=== PATIENT | male | born 1950 | race Caucasian/White ===

== ENCOUNTER → 2016-07-24 | Outpatient (CLI) | payer BC ==
--- NOTE | 2016-07-24 09:38 | MR ---
EXAMINATION TYPE: MR knee LT wo con DATE OF EXAM: 07/24/2016 8:36 AM COMPARISON: Outside radiographs 07/14/2016 HISTORY: 65-year-old male with left Knee Pain TECHNIQUE: Multiplanar, multisequence imaging of the left knee is performed without IV contrast. FINDINGS: The ACL and PCL are intact. There is edematous change both deep and superficial to the intact MCL. In addition, there is some intrinsic high T2 signal within the popliteus tendon and mild edema within the popliteus muscle belly. LCL complex otherwise intact. There is an oblique tear which extends throughout the posterior horn and body of the medial meniscus back to the posterior root where a small 3 mm apparent meniscal cyst is noted. There is mild diffuse thinning of medial compartment articular cartilage and likely some reactive subchondral marrow edema along the peripheral lip of the medial tibial plateau. Lateral meniscus shows an oblique tear extending through the anterior horn, body, and to the junction with the posterior horn. Mild diffuse thinning of lateral compartment articular cartilage with concepcion nal spurring. Patellofemoral compartment shows moderate irregular cartilage loss along both the medial and lateral patellar facets with overall preserved trochlear articular cartilage. There is a tiny 3.7 mm loose body located in front of the anterior root of the lateral meniscus. There is a small knee joint effusion with evidence of a ruptured Whitman's cyst and mild diffuse soft t issue swelling. Some patchy areas of red marrow reconversion are present within the distal femoral metadiaphysis and metaphysis. No suspicious bone marrow replacement. There is normal popliteal artery anatomy with mild diffuse muscular atrophy. IMPRESSION: 1. Grade 1 MCL sprain. 2. Tendinosis versus small interstitial tear of the popliteus tendon. Some edema within the popliteus muscle belly could reflect a muscle strain or could be reactive to altered biomechanics. 3. Oblique tear of the posterior horn and body of the medial meniscus with mild overall medial compar tment osteoarthrosis. 4. Lateral meniscus shows an oblique tear extending from the anterior horn, body, to the junction wit h the posterior horn. Mild overall lateral compartment osteonecrosis. 5. Moderate irregular cartilage loss along the patellar facets of the patellofemoral compartment. Sma ll 4 mm loose body anteriorly. 6. Small knee joint effusion and evidence of a ruptured Whitman's cyst.
== END | disposition home or self-care (01) ==
LOC: RADMRIMAIN 07:43
PROVIDERS: ATTEND Orthopaedic Surgery
DX: S83.412A Sprain of medial collateral ligament of left knee, initial encounter (principal); S83.242A Other tear of medial meniscus, current injury, left knee, initial encounter; S83.282A Other tear of lateral meniscus, current injury, left knee, initial encounter; M71.22 Synovial cyst of popliteal space [Baker], left knee

== ENCOUNTER → 2016-08-24 | Outpatient (CLI) | payer BC ==
[2016-08-24 10:14] LABS: Aty Lym Flag Slight; CH 28.4; CHCM 32.1; HCT 41.7 % (39.0-53.0); HDW 2.54; HGB 13.4 gm/dL (13.0-17.5); MCH 28.5 pg (25.0-35.0); MCHC 32.1 g/dL (31.0-37.0); MCV 88.9 fL (80.0-100.0); Mean Platelet Volume 6.2; RBC 4.69 m/uL (4.30-5.90); RDW 15.4 % (11.5-15.5); WBC 4.9 k/uL (3.8-10.6); WBC (Perox) 5.21
[2016-08-24 10:19] LABS: Potassium 4.5 mmol/L (3.5-5.1)
[2016-08-24 10:55] LABS: Add Differential Manual Differential
[2016-08-24 10:57] LABS: Nucleated Red Blood Cells 0 /100 WBC (0-0); Total Cells Counted 100
[2016-08-24 10:58] LABS: Manual Review Performed; RBC Morphology Normal
== END | disposition home or self-care (01) ==
LOC: LABPAT 09:29
PROVIDERS: ATTEND Orthopaedic Surgery
DX: Z01.818 Encounter for other preprocedural examination (principal); M23.92 Unspecified internal derangement of left knee
CPT/HCPCS: 80051; 85025

== ENCOUNTER 2016-09-03 09:17 | Day surgery (SDC) | payer BC ==
[2016-09-02 08:37] VITALS: BMI 28.3
--- NOTE | 2016-09-02 15:39 | HP ---
DATE OF ADMISSION: Abhishek Sanabria is a 65-year-old patient seen with progressive left knee pain. After having options regarding treatment discussed, he elected to proceed with left knee arthroscopy. Consent was obtained. His past medical history is osteoarthritis. Past surgical history is cataract surgery, back surgery. Daily medications: 1. Aspirin. 2. Ibuprofen. 3. Multivitamin. ALLERGIES: None. SOCIAL HISTORY: Patient denies tobacco use. Physical evaluation of the left knee: Range of motion 0 to 120 degrees, mild intra-articular effusion. Tenderness medial joint line. Positive medial Zac's. Crepitus along the medial compartment with range of motion. Ligaments are stable. Hip rotation without pain. Distal neurovascular exam intact. Radiographs of the left knee revealed mild osteoarthritis. MRI of the left knee revealed medial meniscal tear, lateral meniscal tear as well as osteoarthritic changes. IMPRESSION: Internal derangement of the left knee with medial and lateral meniscal tears. PLAN: Left knee arthroscopy with partial medial and lateral meniscectomy as well as debridement.
[~2016-09-03 09:17] MED LIST: DEXAMETHASONE SOD PHOSPHATE 10 MG/ML 1 ML VIAL IV ONE; LACTATED RINGERS 1,000 ML IV SCH; LIDOCAINE 1% 20 ML VIAL (10MG/ML) FOR IV START INTRADERMA PRN; MIDAZOLAM 2 MG/2 ML VIAL IV PRN; SCOPOLAMINE 1.5MG/72HR PATCH TRANSDERM ONE; ceFAZolin 1,000 MG in DEXTROSE/WATER 1 50ML.BAG IV ONE
[2016-09-03] MEDS: ONDANSETRON 4 MG/2 ML VIAL IVP ONE ×2 (10:27→12:14)
[2016-09-03] MEDS ORDERED: PROPOFOL 10 MG/ML 20 ML VIAL IV ONE (11:09)
[2016-09-03] MEDS ORDERED: MIDAZOLAM 2 MG/2 ML VIAL ONE (11:09)
[2016-09-03] MEDS ORDERED: ePHEDrine 50 MG/ML 1 ML AMP ONE (11:09)
[2016-09-03] MEDS ORDERED: fentaNYL (PF) 50 MCG/ML 2 ML AMP ONE (11:09)
[2016-09-03] MEDS ORDERED: LIDOCAINE 1% INJ 10MG/ML (20 ML MDV) ONE (11:09)
[2016-09-03] MEDS ORDERED: BUPIVACAIN-EPI 0.25%-1:200,000 30 ML VIAL SQ ONE (11:09)
[2016-09-03 12:02] VITALS: TEMP 97.9
--- NOTE | 2016-09-03 12:05 | P.OP ---
Date of Procedure: 09/03/16 Preoperative Diagnosis: Internal derangement left knee Postoperative Diagnosis: 1. Tear medial and lateral meniscus left knee 2. Grade 2/3 chondromalacia medial femoral condyle left knee 3. Grade 1/2 chondromalacia patella left knee 4. Reactive synovitis medial and suprapatellar compartments left knee Procedure(s) Performed: 1. Arthroscopic partial medial and lateral meniscectomy left knee 2. Arthroscopic chondroplasty medial femoral condyle left knee 3. Arthroscopic chondroplasty patella left knee 4. Arthroscopic partial synovectomy medial and suprapatellar compartments left knee Anesthesia: LAKSHMIA, local Surgeon: Barry Mora Estimated Blood Loss (ml): 10 Pathology: none sent Condition: stable Disposition: PACU Indications for Procedure: 65-year-old patient seen with progressive left knee pain. After having treatment options discussed, he elected to proceed with left knee arthroscopy. Operative Findings: Description of procedure Description of Procedure: Patient was taken to the operative suite. Patient underwent a general anesthetic by the department of anesthesia. Patient was given preoperative antibiotics. The left lower extremity was placed in a well-padded arthroscopic leg anthony. The left leg was prepped and draped in the normal sterile orthopedic fashion. A lateral parapatellar and suprapatellar incision was made. Trochars were inserted. Arthroscopy was initiated. Suprapatellar pouch revealed diffuse thick reactive synovitis. The patellofemoral joint appeared to articulate congruently. There was grade 1/2 chondromalacia with some small osteochondral tears present. The scope was guided into the medial gutter. No loose bodies or plica were identified. The scope was then guided into the medial compartment. A medial parapatellar incision was made. Trocar inserted followed by probe. There was a complex tear posterior horn medial meniscus. There was an area of grade 2/3 chondromalacia medial femoral condyle with osteochondral tears. There was reactive synovitis anteriorly. There were grade 2 chondromalacia changes of the tibial plateau with no significant osteochondral tears present. A partial medial meniscectomy was performed down to stable tissue. I performed a chondroplasty of the medial femoral condyle and partial synovectomy. The residual meniscus was probed and found to be stable. The residual osteochondral surface medial femoral condyle was stable. Scope and probe were then guided into the intercondylar notch. Cruciates were identified, probed and found to be stable. The scope and probe were then guided into lateral compartment. There was a radial tear posterior horn and midbody area lateral meniscus. There was some superficial fraying of the posterior horn lateral meniscus. Mild grade 1 chondromalacia changes lateral compartment with no osteochondral tears. A partial lateral meniscectomy performed down to stable tissue. The residual meniscus was probed and found to be stable. The scope was in guided back into the suprapatellar compartment. I introduced a motorized shaver into the suprapatellar compartment. I debrided some piecemeal fragments of meniscus. I performed a chondroplasty of the patella down to stable tissue. I performed a partial synovectomy. Shaver was removed. I took one more look around the entire knee, no residual debris. Instruments were now removed from the joint. The joint was infiltrated with .25 % Marcaine. Steri-Strips were applied to the portal sites. Sterile dressings were applied. The patient was placed into a BOBBI hose. No tourniquet was utilized. The patient was awakened, transferred to a bed and taken to recovery stable satisfactory condition.
[2016-09-03] MEDS: HYDROmorphone 1 MG/ML 1 ML SYRINGE IVP PRN ×2 (12:14→12:24)
[2016-09-03] MEDS ORDERED: KETOROLAC 30 MG/ML 1 ML VIAL IVP ONE (12:14)
[2016-09-03] MEDS ORDERED: HYDROcodone/APAP 10-325MG 1 EACH TAB PO ONE (13:10)
[2016-09-03] MEDS ORDERED: HYDROcodone/APAP 5-325MG 1 EACH TAB PO ONE (13:10)
[2016-09-03 13:47] VITALS: BP 151/97; PULSE 97; RESP 18
== END 2016-09-03 14:12 | disposition home or self-care (01) ==
LOC: OR 09:17
PROVIDERS: ATTEND Orthopaedic Surgery
DX: S83.242A Other tear of medial meniscus, current injury, left knee, initial encounter (principal); S83.282A Other tear of lateral meniscus, current injury, left knee, initial encounter; X58.XXXA Exposure to other specified factors, initial encounter; M94.262 Chondromalacia, left knee; M22.42 Chondromalacia patellae, left knee; M65.862 Other synovitis and tenosynovitis, left lower leg; M23.92 Unspecified internal derangement of left knee; M17.12 Unilateral primary osteoarthritis, left knee; Z79.1 Long term (current) use of non-steroidal anti-inflammatories (NSAID); Z79.82 Long term (current) use of aspirin; Z79.899 Other long term (current) drug therapy
CPT/HCPCS: 29880; J2250; J1100; J2405; J2001; J3010; J1885; J1170; J0690; J2704

== ENCOUNTER → 2017-09-15 | Outpatient (CLI) | payer BC ==
--- NOTE | 2017-09-15 16:53 | US ---
EXAMINATION TYPE: US carotid duplex BILAT DATE OF EXAM: 09/15/2017 COMPARISON: NONE CLINICAL HISTORY: 66-year-old male I65.29 Occlusion and stenosis of carotid artery. Stenosis, pt has no complaints at this time TECHNIQUE: Carotid duplex ultrasound examination. In direct Doppler criteria was utilized. FINDINGS: EXAM MEASUREMENTS: RIGHT: Peak Systolic Velocity (PSV) cm/sec ----- Right CCA: 70.3 ----- Right ICA: 71.2 ----- Right ECA: 95.3 ICA/CCA ratio: 1.0 RIGHT: End Diastole cm/sec ----- Right CCA: 18.0 ----- Right ICA: 30.2 ----- Right ECA: 17.6 LEFT: Peak Systolic Velocity (PSV) cm/sec ----- Left CCA: 78.2 ----- Left ICA: 73.8 ----- Left ECA: 66.8 ICA/CCA ratio: 0.9 LEFT: End Diastole cm/sec ----- Left CCA: 26.7 ----- Left ICA: 22.3 ----- Left ECA: 12.7 VERTEBRALS (direction of flow): Right Vertebral: Antegrade Left Vertebral: Antegrade Rhythm: Normal Shank Piece Tacker notes: Mild heterogeneous and soft plaque bilaterally, however no elevated velocities vis ualized IMPRESSION: No hemodynamically significant stenosis appreciated in either internal carotid artery. Criteria for Assigning % of Stenosis / Diameter reduction (Estimation based on the indirect measurements of the internal carotid artery velocities (ICA PSV). 1. Normal (no stenosis)=ICA PSV < 125 cm/s: ratio < 2.0: ICA EDV<40 cm/s. 2. Less than 50% stenosis=ICA PSV < 125 cm/s: ratio < 2.0: ICA EDV<40 cm/s. 3. 50 to 69% stenosis=ICA PSV of 125 to 230 cm/s: ration 2.0 ? 4.0: ICA EDV 40-100 cm/s. 4. Greater than 70% stenosis to near occlusion= ICA PSV > 230 cm/s: ratio > 4.0: ICA EDV > 100 cm/s. 5. Near occlusion= ICA PSV velocities may be low or undetectable: variable ratio and ICA EDV. 6. Total occlusion=unable to detect flow.
== END | disposition home or self-care (01) ==
LOC: RADUSWWP 16:04
PROVIDERS: ATTEND Family Medicine
DX: I65.29 Occlusion and stenosis of unspecified carotid artery (principal)
CPT/HCPCS: 93880

== ENCOUNTER → 2017-12-08 | Outpatient (CLI) | payer BC, MEDICARE ==
--- NOTE | 2017-12-08 13:47 | US ---
EXAMINATION TYPE: US duplex aorta DATE OF EXAM: 12/08/2017 COMPARISON: US 03/30/2008 CLINICAL HISTORY: I10 Hypertension. Family hx of AAA. Former smoker. EXAM MEASUREMENTS: Abdominal Aorta: Proximal: 2.7 x 2.5 cm Mid: 2.1 x 1.8 cm Distal: 1.6 x 1.5 cm Bifurcation: 1.1 cm 1.0 cm ? hypoechoic area anterior to mid aorta. Seen previously 2007. Perhaps prominent lymph node. Given 10 years stability it is presumed benign. IMPRESSION: No ultrasound evidence for abdominal aortic aneurysm.
== END | disposition home or self-care (01) ==
LOC: RADUSWWP 11:12
PROVIDERS: ATTEND Family Medicine
DX: I10 Essential (primary) hypertension (principal); Z87.891 Personal history of nicotine dependence; Z82.49 Family history of ischemic heart disease and other diseases of the circulatory system
CPT/HCPCS: 93979

== ENCOUNTER 2019-08-23 06:50 | Day surgery (SDC) | payer MEDICARE, OTHER ==
[2019-08-18 09:40] VITALS: BMI 28.8
[~2019-08-23 06:50] MED LIST changes: -DEXAMETHASONE SOD PHOSPHATE 10 MG/ML 1 ML VIAL IV ONE; +LIDOCAINE 1% (10MG/ML) FOR IV START INTRADERMA PRN; -LIDOCAINE 1% 20 ML VIAL (10MG/ML) FOR IV START INTRADERMA PRN; -MIDAZOLAM 2 MG/2 ML VIAL IV PRN; -SCOPOLAMINE 1.5MG/72HR PATCH TRANSDERM ONE; -ceFAZolin 1,000 MG in DEXTROSE/WATER 1 50ML.BAG IV ONE
[2019-08-23 07:16] VITALS: TEMP 97.8
[2019-08-23] MEDS ORDERED: PROPOFOL 10 MG/ML 20 ML VIAL IV ONE (07:46)
[2019-08-23] MEDS ORDERED: LIDOCAINE 1% INJ 10MG/ML (20 ML MDV) ONE (07:46)
--- NOTE | 2019-08-23 08:03 | P.GSHP ---
History of Present Illness H&P Date: 08/23/19 Chief Complaint: Screening colonoscopy This is a 68-year-old male presents today for colonoscopy. His last colonoscopy some 6 years ago. He denies any significant GI complaints. Past Medical History Past Medical History: Hypertension History of Any Multi-Drug Resistant Organisms: None Reported Past Surgical History: Adenoidectomy, Back Surgery, Tonsillectomy Additional Past Surgical History / Comment(s): COLONOSCOPY , LEFT KNEE ARTHROSCOPY , RIGHT EAR SURGERY, RIGHT EYE CATARACT SURGERY , BACK SURGERY X2 Past Anesthesia/Blood Transfusion Reactions: No Reported Reaction Smoking Status: Former smoker - Past Family History Mother Family Medical History: No Reported History Medications and Allergies Home Medications Medication Instructions Recorded Confirmed Type Glucosam/Brett-Msm1/C/Aashish/Bosw 1 each PO DAILY 09/02/16 08/23/19 History [Glucosamine-Chondroitin Tablet] Multivitamin [Men's Multi-Vitamin] 1 each PO DAILY 09/02/16 08/23/19 History Losartan Potassium [Cozaar] 100 mg PO DAILY 08/18/19 08/23/19 History Allergies Allergy/AdvReac Type Severity Reaction Status Date / Time No Known Allergies Allergy Verified 08/18/19 09:34 Surgical - Exam Vital Signs Temp Pulse Resp BP Pulse Ox 97.8 F 90 20 156/94 95 08/23/19 07:12 08/23/19 07:12 08/23/19 07:12 08/23/19 07:12 08/23/19 07:12 - General well developed, well nourished, no distress - Eyes PERRL - ENT normal pinna - Neck no masses - Respiratory normal expansion - Cardiovascular Rhythm: regular - Abdomen Abdomen: soft, non tender Assessment and Plan Assessment: We'll perform screening colonoscopy.
--- NOTE | 2019-08-23 08:18 | P.OP ---
Date of Procedure: 08/23/19 Preoperative Diagnosis: Screening colonoscopy Postoperative Diagnosis: Diverticulosis Procedure(s) Performed: Colonoscopy Anesthesia: MAC Surgeon: Jeffery Mcgrath Pathology: none sent Condition: stable Disposition: PACU Description of Procedure: The patient's placed on the endoscopy table in the lateral position. He received IV sedation. Digital rectal exam was performed which revealed no abnormalities. Flexible colonoscope was then placed patient anus passed throughout the entire colon. The ileocecal valve was visually is. The cecum, ascending and transverse colon appeared normal. The descending; there is mild diverticulosis. There is no evidence of diverticulitis. Scope was then brought back the rectum and this appeared normal. Scope withdrawn for patient.
[2019-08-23 08:36] VITALS: BP 122/82; PULSE 78; RESP 17
== END 2019-08-23 09:13 | disposition home or self-care (01) ==
LOC: ORWHC2ENDO 06:50
PROVIDERS: ATTEND Surgery
DX: Z12.11 Encounter for screening for malignant neoplasm of colon (principal); K57.30 Diverticulosis of large intestine without perforation or abscess without bleeding; I10 Essential (primary) hypertension; Z90.89 Acquired absence of other organs; Z98.890 Other specified postprocedural states; Z98.41 Cataract extraction status, right eye; Z87.891 Personal history of nicotine dependence; Z79.899 Other long term (current) drug therapy
CPT/HCPCS: J2001; J2704; G0121

== ENCOUNTER → 2020-06-18 | Outpatient (CLI) | payer MEDICARE, OTHER ==
--- NOTE | 2020-06-18 15:07 | XR ---
EXAMINATION TYPE: XR skull complete DATE OF EXAM: 06/18/2020 COMPARISON: None HISTORY: Pre-MRI clearance history of right ear surgery TECHNIQUE: Skull is examined in 4 projections. FINDINGS: Skull appears intact. No acute fractures are evident. Sella is normal. There may be a prior right mastoidectomy. No suspicious metallic foreign bodies to contraindicate MRI are identified. IMPRESSION: 1. No suspicious metallic foreign bodies
== END | disposition home or self-care (01) ==
LOC: RADXRMAIN 14:19
PROVIDERS: ATTEND Physical Medicine & Rehabilitation
DX: Z01.89 Encounter for other specified special examinations (principal)
CPT/HCPCS: 70260

== ENCOUNTER 2021-05-15 07:39 | Day surgery (SDC) | payer MEDICARE, OTHER ==
[2021-05-15] MEDS ORDERED: diazePAM 5 MG TAB PO PRN (08:26)
[2021-05-15 08:43] VITALS: TEMP 98.2
--- NOTE | 2021-05-15 12:19 | CT ---
EXAMINATION TYPE: CT lumbar spine w con DATE OF EXAM: 05/15/2021 COMPARISON: Outside lumbar spine MRI June 19, 2020 HISTORY: Low back pain and leg numbness. CT DLP: 589 mGycm Automated exposure control for dose reduction was used. CONTRAST: CT scan of the lumbar is performed after intrathecal injection of contrast, patient injected with 12 mL of Isovue M200. Enhanced CT of the lumbar spine was performed. Bone and soft tissue window settings are submitted as well as coronal and sagittal reconstructions. There are 5 lumbar-type vertebra redemonstrated. Slight levoconvex scoliotic curvature redemonstrated . Successful intrathecal contrast injection noted. Vertebral body heights are maintained. Mild to mod erate disc space narrowing at L1-L2 level redemonstrated. Mild disc space narrowing L3-L4 level redem onstrated. Moderate disc space narrowing L4-L5 and L5-S1 levels redemonstrated. Conus medullaris stab le in position ending superior L2 level. Axial images show T11-T12 and T12-L1 level to appear within normal limits. Axial images at L1-L2 level demonstrate [id number] broad disc bulge mildly effaces the anterior thecal sac. Mild bilateral neural foraminal narrowing redemonstrated. Axial images at L2-L3 level and [id number] broad disc bulge mildly effacing the anterior thecal sac. There is mild right greater than left facet arthropathy. Patent bilateral neural foramina. No s ignificant change from prior. Axial images at L3-L4 level shows moderate broad-based disc bulge effacing anterior thecal sac. There is moderate facet arthropathy present posterior left thecal sac. Most prominent spinal canal effacem ent stenosis redemonstrated at this level. There is mild left and moderate right-sided neural foramin al narrowing. Encroachment of the extra foraminal right L3 nerve suspected axial image 46 and sagitta l image 29. Axial images at L4-L5 level show moderate to advanced facet arthropathy right greater than left with right-sided effacement. Moderate broad-based posterior spur disc complex effaces the anterior thecal sac. Mild to moderate right-sided anterior inferior neural foraminal narrowing. Left-sided neural for faye is patent. Axial images at L5-S1 level show moderate facet arthropathy bilaterally. Tiny posterior spur disc com plex. Spinal canal preserved. Moderate bilateral neural foraminal narrowing redemonstrated. Normal-appearing appendix in the right lower quadrant is incidentally noted. 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 Mild calcified plaque in the distal abdomin al aorta extends into iliac branch vessels. IMPRESSION: Successful myelogram. Slight scoliotic curvature redemonstrated. Multilevel degenerative changes seen as detailed above without significant change from outside MRI. Most prominent spinal can al effacement or stenosis noted at L3-L4 level.
--- NOTE | 2021-05-15 13:50 | FL ---
EXAMINATION TYPE: FL myelogram lumbosacral DATE OF EXAM: 05/15/2021 COMPARISON: Outside lumbar spine x-ray April 16, 2021 HISTORY: Low back pain. Technique: Fluoroscopic assisted lumbar myelogram for subsequent CT. Total of 12 cc of Isovue-M 200 w as injected intrathecally. Total amount of 2 minutes 31 seconds fluoroscopic time utilized. 4 spot im ages saved to PACS. FINDINGS: Informed consent was obtained and all the patient's questions were answered. Attempts made at L2-L3 level using straight on approach and subsequent paraspinal approach. Overlying skin is cleansed with Betadine. Lidocaine was used as anesthetic. Spinal needle was introduced into the thecal sac under fluoroscopic guidance. Contrast was injected. Needle was withdrawn. The patien t tolerated the procedure well and left the radiology department in stable condition. Spot images con firm successful intrathecal injection. Poor flow of contrast with abrupt cut off at L3-L4 disc space level noted. Vital signs monitored before during and after procedure. Patient was kept in the [facility] for shortness after the procedure and discharged home in stable condition. CT myelography is to follow. This report is dictated separately. IMPRESSION: Successful myelography lumbar spine.
[2021-05-15 18:24] VITALS: RESP 16
[2021-05-15 18:28] VITALS: BP 123/72; PULSE 90
== END 2021-05-15 13:03 | disposition home or self-care (01) ==
LOC: RADPROMAIN 07:39
PROVIDERS: ATTEND Orthopaedic Surgery
DX: M47.816 Spondylosis without myelopathy or radiculopathy, lumbar region (principal); M47.817 Spondylosis without myelopathy or radiculopathy, lumbosacral region; Q63.1 Lobulated, fused and horseshoe kidney; M41.9 Scoliosis, unspecified; M48.061 Spinal stenosis, lumbar region without neurogenic claudication
CPT/HCPCS: 62304; 72132; J2001; Q9966

== ENCOUNTER 2024-09-01 11:46 | Inpatient (IN) | payer MEDICARE ==
--- NOTE | 2024-09-01 12:53 | ED ---
General Adult HPI - General Chief complaint: Fever Stated complaint: Fall-Fever Time Seen by Provider: 09/01/24 12:11 Source: patient, family, RN notes reviewed Mode of arrival: ambulatory Limitations: no limitations - History of Present Illness Initial comments: Patient is a 73-year-old male present to the emergency department with weakness and fever. Onset was yesterday, worse today. Patient has had 3 or 4 falls without injury except for mild left shoulder discomfort. Patient has had a cough for a couple of weeks that seems to be improving. Patient has had some problems with urination. No abdominal pain. No vomiting. Temperature was 103 at home and patient was given Motrin with significant improvement of symptoms. - Related Data Home Medications Medication Instructions Recorded Confirmed Losartan Potassium [Cozaar] 100 mg PO HS 08/18/19 09/01/24 Atorvastatin [Lipitor] 20 mg PO HS 09/01/24 09/01/24 metFORMIN HCL [Glucophage] 500 mg PO BID 09/01/24 09/01/24 Allergies Allergy/AdvReac Type Severity Reaction Status Date / Time shellfish derived [Shellfish] Allergy Unknown Verified 09/01/24 13:51 Review of Systems ROS Statement: Those systems with pertinent positive or pertinent negative responses have been documented in the HPI. ROS Other: All systems not noted in ROS Statement are negative. Constitutional: Reports: as per HPI, fever, chills Eyes: Denies: eye pain Respiratory: Reports: cough Cardiovascular: Denies: chest pain Endocrine: Reports: fatigue Gastrointestinal: Denies: abdominal pain, vomiting Genitourinary: Denies: dysuria Musculoskeletal: Denies: back pain Neurological: Denies: headache Past Medical History Past Medical History: Hypertension History of Any Multi-Drug Resistant Organisms: None Reported Past Surgical History: Adenoidectomy, Back Surgery, Tonsillectomy Additional Past Surgical History / Comment(s): COLONOSCOPY , LEFT KNEE ARTHROSCOPY , RIGHT EAR SURGERY, RIGHT EYE CATARACT SURGERY , BACK SURGERY X2 1989, epideral for pain Past Anesthesia/Blood Transfusion Reactions: No Reported Reaction Past Psychological History: No Psychological Hx Reported Smoking Status: Former smoker Past Alcohol Use History: Rare Past Drug Use History: None Reported - Past Family History Mother Family Medical History: No Reported History General Exam Limitations: no limitations General appearance: alert, in no apparent distress Head exam: Present: atraumatic Eye exam: Present: normal appearance, PERRL, EOMI Neck exam: Present: normal inspection. Absent: tenderness, meningismus Respiratory exam: Present: normal lung sounds bilaterally Cardiovascular Exam: Present: regular rate, normal rhythm GI/Abdominal exam: Present: soft. Absent: tenderness Extremities exam: Present: normal inspection, full ROM. Absent: tenderness Neurological exam: Present: alert, CN II-XII intact. Absent: motor sensory deficit Expanded Neurological exam: Present: protecting the airway Speech: Present: fluid speech Motor strength exam: RUE: 5, LUE: 5, RLE: 5, LLE: 5 Psychiatric exam: Present: normal affect, normal mood Skin exam: Present: normal color Course Vital Signs 09/01/24 09/01/24 11:57 13:40 Temperature 98.2 F Pulse Rate 92 86 Respiratory 18 18 Rate Blood Pressure 99/61 114/76 O2 Sat by Pulse 96 96 Oximetry Medical Decision Making - Medical Decision Making Was pt. sent in by a medical professional or institution (, PA, FLORAL DESIGNER SALESPERSON, urgent care, hospital, or alf...) When possible be specific @ -[No] Did you speak to anyone other than the patient for history (EMS, parent, family, police, friend...)? What history was obtained from this source @ -Family is present helps provide majority of history as patient is somewhat a poor historian Did you review nursing and triage notes (agree or disagree)? Why? @ -[I reviewed and agree with nursing and triage notes] Were old charts reviewed (outside hosp., previous admission, EMS record, old EKG, old radiological studies, urgent care reports/EKG's, alf records)? Report findings @ -[No old charts were reviewed] Differential Diagnosis (chest pain, altered mental status, abdominal pain women, abdominal pain men, vaginal bleeding, weakness, fever, dyspnea, syncope, headache, dizziness, GI bleed, back pain, seizure, CVA, palpatations, mental health, musculoskeletal)? @ -Differential Fever: Pneumonia, viral URI, endocarditis, myocarditis, pericarditis, otitis, sinusitis, peritonsillar Abscess, retropharyngeal Abscess, epiglottitis, peritonitis, appendicitis, [place] cystitis, diverticulitis, hepatitis, colitis, UTI, PID, TOA, pyelonephritis, prostatitis, epididymitis, meningitis, encephalitis, pulmonary embolism, CVA, thyroid storm, pancreatitis, adrenal crisis, cavernous sinus thrombosis, this is not meant to be an all-inclusive list. EKG interpreted by me (3pts min.). @ -[As above] X-rays interpreted by me (1pt min.). @ -Chest x-ray interpreted by myself shows no acute process CT interpreted by me (1pt min.). @ -[None done] U/S interpreted by me (1pt. min.). @ -[None done] What testing was considered but not performed or refused? (CT, X-rays, U/S, labs)? Why? @ -[None] What meds were considered but not given or refused? Why? @ -[None] Did you discuss the management of the patient with other professionals (professionals i.e. , PA, FLORAL DESIGNER SALESPERSON, lab, RT, psych nurse, social services technician, medical office clerk, teacher, nuclear officer, community case manager)? Give summary @ -Case was discussed with practitioner Arjun who will admit covering Dr. Acharya Was smoking cessation discussed for >3mins.? @ -[No] Was critical care preformed (if so, how long)? @ -31 minutes critical care time provided Were there social determinants of health that impacted care today? How? (Homelessness, low income, unemployed, alcoholism, drug addiction, transportation, low edu. Level, literacy, decrease access to med. care, long-term, rehab)? @ -[No] Was there de-escalation of care discussed even if they declined (Discuss DNR or withdrawal of care, Hospice)? DNR status @ -[No] What co-morbidities impacted this encounter? (DM, HTN, Smoking, COPD, CAD, Cancer, CVA, ARF, Chemo, Hep., AIDS, mental health diagnosis, sleep apnea, morbid obesity)? @ -[None] Was patient admitted / discharged? Hospital course, mention meds given and route, prescriptions, significant lab abnormalities, going to OR and other pertinent info. @ -Patient presents with generalized weakness. Patient did have a fever. Evaluation concerning for urinary tract infection. Patient does meet sepsis criteria diagnosed at 1425. Lactic acid, blood culture, and IV antibiotics have all been ordered. Patient will need fluids secondary to elevated CPK. IV fluids have been ordered. Patient reevaluated. Patient and family are updated. Admission orders written. Undiagnosed new problem with uncertain prognosis? @ -[No] Drug Therapy requiring intensive monitoring for toxicity (Heparin, Nitro, Insulin, Cardizem)? @ -[No] Were any procedures done? @ -[No] Diagnosis/symptom? @ -UTI, sepsis, hyponatremia Acute, or Chronic, or Acute on Chronic? @ -Acute, acute, acute Uncomplicated (without systemic symptoms) or Complicated (systemic symptoms)? @ -[default] Side effects of treatment? @ -[No] Exacerbation, Progression, or Severe Exacerbation? @ -[No] Poses a threat to life or bodily function? How? (Chest pain, [place], [place], pneumonia, PE, COPD, DKA, ARF, appy, cholecystitis, CVA, Diverticulitis, Homicidal, Suicidal, threat to staff... and all critical care pts) @ -[No] - Lab Data Result diagrams: 09/01/24 13:16 09/01/24 13:16 Lab Results 09/01/24 09/01/24 09/01/24 Range/Units 13:16 13:16 13:16 WBC 18.9 H (3.8-10.6) k/uL RBC 4.08 L (4.30-5.90) m/uL Hgb 13.2 (13.0-17.5) gm/dL Hct 38.3 L (39.0-53.0) % MCV 94.0 (80.0-100.0) fL MCH 32.4 (25.0-35.0) pg MCHC 34.5 (31.0-37.0) g/dL RDW 12.3 (11.5-15.5) % Plt Count 249 (150-450) k/uL MPV 6.5 Neutrophils % 90 % Lymphocytes % 3 % Monocytes % 5 % Eosinophils % 1 % Basophils % 0 % Neutrophils # 17.0 H (1.3-7.7) k/uL Lymphocytes # 0.6 L (1.0-4.8) k/uL Monocytes # 1.0 (0-1.0) k/uL Eosinophils # 0.1 (0-0.7) k/uL Basophils # 0.0 (0-0.2) k/uL PT 13.0 H (10.0-12.5) sec INR 1.2 H (<1.2) APTT 25.0 (22.0-30.0) sec Sodium 126 L (137-145) mmol/L Potassium 4.1 (3.5-5.1) mmol/L Chloride 94 L (98-107) mmol/L Carbon Dioxide 21 L (22-30) mmol/L Anion Gap 11 mmol/L BUN 22 H (9-20) mg/dL Creatinine 1.27 H (0.66-1.25) mg/dL Est GFR (CKD-EPI)AfAm 65 (>60 ml/min/1.73 sqM) Est GFR (CKD-EPI)NonAf 57 (>60 ml/min/1.73 sqM) Glucose 124 H (74-99) mg/dL Plasma Lactic Acid Nayan (0.7-2.0) mmol/L Calcium 9.1 (8.4-10.2) mg/dL Total Bilirubin 1.4 H (0.2-1.3) mg/dL AST 54 (17-59) U/L ALT 33 (4-49) U/L Alkaline Phosphatase 26 L (38-126) U/L Creatine Kinase 1415 H* (55-170) U/L Total Protein 6.9 (6.3-8.2) g/dL Albumin 3.9 (3.5-5.0) g/dL Urine Color Urine Appearance (Clear) Urine pH (5.0-8.0) Ur Specific [place] (1.001-1.035) Urine Protein (Negative) Urine Glucose (UA) (Negative) Urine Ketones (Negative) Urine Blood (Negative) Urine Nitrite (Negative) Urine Bilirubin (Negative) Urine Urobilinogen (<2.0) mg/dL Ur Leukocyte Esterase (Negative) Urine RBC (0-5) /hpf Urine WBC (0-5) /hpf Urine Bacteria (None) /hpf Urine Mucus (None) /hpf Influenza Type A (PCR) (Not Detectd) Influenza Type B (PCR) (Not Detectd) RSV (PCR) (Not Detectd) SARS-CoV-2 (PCR) (Not Detectd) 09/01/24 09/01/24 09/01/24 Range/Units 13:16 13:16 14:05 WBC (3.8-10.6) k/uL RBC (4.30-5.90) m/uL Hgb (13.0-17.5) gm/dL Hct (39.0-53.0) % MCV (80.0-100.0) fL MCH (25.0-35.0) pg MCHC (31.0-37.0) g/dL RDW (11.5-15.5) % Plt Count (150-450) k/uL MPV Neutrophils % % Lymphocytes % % Monocytes % % Eosinophils % % Basophils % % Neutrophils # (1.3-7.7) k/uL Lymphocytes # (1.0-4.8) k/uL Monocytes # (0-1.0) k/uL Eosinophils # (0-0.7) k/uL Basophils # (0-0.2) k/uL PT (10.0-12.5) sec INR (<1.2) APTT (22.0-30.0) sec Sodium (137-145) mmol/L Potassium (3.5-5.1) mmol/L Chloride (98-107) mmol/L Carbon Dioxide (22-30) mmol/L Anion Gap mmol/L BUN (9-20) mg/dL Creatinine (0.66-1.25) mg/dL Est GFR (CKD-EPI)AfAm (>60 ml/min/1.73 sqM) Est GFR (CKD-EPI)NonAf (>60 ml/min/1.73 sqM) Glucose (74-99) mg/dL Plasma Lactic Acid [place] 1.0 (0.7-2.0) mmol/L Calcium (8.4-10.2) mg/dL Total Bilirubin (0.2-1.3) mg/dL AST (17-59) U/L ALT (4-49) U/L Alkaline Phosphatase (38-126) U/L Creatine Kinase (55-170) U/L Total Protein (6.3-8.2) g/dL Albumin (3.5-5.0) g/dL Urine Color Light Yellow Urine Appearance Cloudy (Clear) Urine pH 5.5 (5.0-8.0) Ur Specific [place] 1.011 (1.001-1.035) Urine Protein Trace H (Negative) Urine Glucose (UA) Negative (Negative) Urine Ketones Negative (Negative) Urine Blood Small H (Negative) Urine Nitrite Negative (Negative) Urine Bilirubin Negative (Negative) Urine Urobilinogen <2.0 (<2.0) mg/dL Ur Leukocyte Esterase Large H (Negative) Urine RBC 7 H (0-5) /hpf Urine WBC 131 H (0-5) /hpf Urine Bacteria Many H (None) /hpf Urine Mucus Rare H (None) /hpf Influenza Type A (PCR) Not Detected (Not Detectd) Influenza Type B (PCR) Not Detected (Not Detectd) RSV (PCR) Not Detected (Not Detectd) SARS-CoV-2 (PCR) Not Detected (Not Detectd) Disposition Clinical Impression: Urinary tract infection Disposition: ADMITTED IP TO THIS HOSP Condition: Serious Is patient prescribed a controlled substance at d/c from ED?: No Referrals: Papo Acharya MD [Primary Care Provider] - 1-2 days Time of Disposition: 14:34
[2024-09-01] MEDS: ACETAMINOPHEN TAB 500 MG TAB PO STA (13:19)
[2024-09-01] MEDS: LACTATED RINGERS 1,000 ML IV SCH (13:23)
[2024-09-01 13:26] LABS: Basophils % (A) 0 %; Eosinophils # (A) 0.1 k/uL (0-0.7); Eosinophils % (A) 1 %; HCT 38.3 % (39.0-53.0); HGB 13.2 gm/dL (13.0-17.5); Lymphocytes # (A) 0.6 k/uL (1.0-4.8); Lymphocytes % (A) 3 %; MCH 32.4 pg (25.0-35.0); MCHC 34.5 g/dL (31.0-37.0); Mean Platelet Volume 6.5; Monocytes % (A) 5 %; Neutrophils % (A) 90 %; Platelet Count 249 k/uL (150-450); RBC 4.08 m/uL (4.30-5.90); RDW 12.3 % (11.5-15.5); WBC 18.9 k/uL (3.8-10.6)
[2024-09-01 13:34] LABS: INR 1.2 (<1.2)
[2024-09-01 13:37] LABS: ALT 33 U/L (4-49); AST 54 U/L (17-59); African American GFR (CKD) 65 (>60 ml/min/1.73 sqM); Albumin 3.9 g/dL (3.5-5.0); Alkaline Phosphatase 26 U/L (38-126); Anion Gap 11 mmol/L; Blood Urea Nitrogen 22 mg/dL (9-20); Calcium 9.1 mg/dL (8.4-10.2); Carbon Dioxide 21 mmol/L (22-30); Chloride 94 mmol/L (98-107); Glucose 124 mg/dL (74-99); Non-African American GFR(CKD) 57 (>60 ml/min/1.73 sqM); Potassium 4.1 mmol/L (3.5-5.1); Sodium 126 mmol/L (137-145); Total Bilirubin 1.4 mg/dL (0.2-1.3); Total Protein 6.9 g/dL (6.3-8.2)
--- NOTE | 2024-09-01 13:37 | XR ---
EXAMINATION TYPE: XR chest 2V DATE OF EXAM: 09/01/2024 1:34 PM COMPARISON: None. CLINICAL INDICATION: Male, 73 years old with history of Fever: Shortness of breath TECHNIQUE: XR chest 2V views of the chest are obtained. FINDINGS: Scattered senescent parenchymal changes noted. Hyperinflation compatible with COPD. No evidence for infiltrate. No evidence for atelectasis. Heart size is stable. Mediastinal structures are stable and grossly unremarkable. No evidence for hilar prominence. Degenerative changes dorsal spine. IMPRESSION: 1. No evidence for acute pulmonary disease. [facility], , 09/01/2024 1:35 PM
--- NOTE | 2024-09-01 13:37 | XR ---
EXAMINATION TYPE: XR shoulder complete LT DATE OF EXAM: 09/01/2024 1:34 PM COMPARISON: None. CLINICAL INDICATION: Male, 73 years old with history of fall, pain TECHNIQUE: XR shoulder complete LT views were obtained FINDINGS: There is no acute fracture/dislocation evident. The acromioclavicular and glenohumeral joint spaces appear within normal limits. The visualized ribs are intact and unremarkable. IMPRESSION: There is no acute fracture or dislocation. [facility], , 09/01/2024 1:35 PM
[2024-09-01 13:52] LABS: Creatine Kinase 1415 U/L (55-170)
[2024-09-01 14:02] LABS: Influenza A Not Detected (Not Detectd); Influenza B Not Detected (Not Detectd); RSV Not Detected (Not Detectd)
[2024-09-01 14:24] LABS: Appearance,Urine Cloudy (Clear); Bacteria,Urine Many /hpf; Bilirubin,Urine Negative (Negative); Blood,Urine Small (Negative); Color,Urine Light Yellow; Glucose,Urine (UA) Negative (Negative); Ketones,Urine Negative (Negative); Leukocyte Esterase,Urine Large (Negative); Mucus,Urine Rare /hpf; Nitrite,Urine Negative (Negative); PH, Urine 5.5 (5.0-8.0); Protein,Urine Trace (Negative); RBC,Urine 7 /hpf (0-5); Specific Gravity,Urine 1.011 (1.001-1.035); Urobilinogen,Urine <2.0 mg/dL (<2.0); WBC,Urine 131 /hpf (0-5)
[2024-09-01] MEDS ORDERED: NALOXONE 0.4 MG/ML 1 ML VIAL IV PRN (14:34)
[2024-09-01] MEDS ORDERED: DEXTROSE 50% SYRINGE 50 ML IVP PRN ×2 (17:34)
--- NOTE | 2024-09-01 17:37 | P.HPIM ---
History of Present Illness H&P Date: 09/01/24 73 year old M with PMH HTN, HLD, DM presents to the ED for generalized weakness and fever. Patient is a poor historian and history is obtained from charting. Patient reports inability to control his bladder. Apparently he had a Tmax of 103F at home which prompted this admission. He currently denies any headache, LE edema, N/V, cough, chest pain, shortness of breath, palpitations, changes in bowel habits. No changes in appetite or weight. No dizziness, numbness/weakness/tinging of the extremities. In the ED he underwent extensive evaluation. BP 99/61, HR 92, RR 18, T 98.2F, 96% on RA. CBC, Coag panel, CMP significant for WBC 18.9, RBC 4.08, Hct 38.3, PT 13, INR 1.2, Na 126, Cl 94, bicarb 21, BUN 22, Cr 1.27, glu 124, T. Bili 1.4, alk phos 26. Lactic acid 1.0. CPK 1415. UA large LE. COVID, RSV, Flu neg. CXR/Shoulder XR showed no acute process. Patient is admitted for further workup and management. General: non toxic, no distress, appears at stated age Derm: warm, dry Head: atraumatic, normocephalic, symmetric Mouth: no lip lesion, mucus membranes moist Cardiovascular: S1S2 tachy, no murmur Lungs: Expiratory wheezing bilaterally, no accessory muscle use Abd: Non tender to palpation. Ext: no gross muscle atrophy, no edema, no contractures Neuro: no focal neuro deficits Psych: Alert and oriented. Based on my assessment of this patient, this patient meets a high complexity level of care. Sepsis secondary to UTI: Start Rocephin 1g IV QD. Obtain UCx + BCx. Start LR at 130 cc/hr. Telemetry monitoring. Hyponatremia, Acute kidney injury and Hyperbilirubinemia likely secondary to dehydration: IV hydration as above. Hold Losartan. Repeat BMP in the AM. Rhabdomyolysis: IV hydration as above. Repeat BMP in the AM. Hypertension: Borderline low BP now. Hold Losartan. Monitor vitals and re- introduce antihypertensive medication if necessary. Diabetes mellitus: ISS + Accuchecks ACHS along with hypoglycemic precautions. Obtain A1c. Dyslipidemia: Lipitor 20 mg PO QD. CODE STATUS: FULL CODE. DVT Prophylaxis: Heparin SQ GI Prophylaxis: Designated medical POA if patient is not able to make medical decisions for themselves: I have reviewed the following senior professional services consultant notes: ED note. I have reviewed the results of the following tests: As above I have ordered the following tests: As above I have discussed the care of this patient with the following independent historian: I have independently interpreted the following test below: CXR I have discussed the management of this patient with the following physician: Past Medical History Past Medical History: Hypertension History of Any Multi-Drug Resistant Organisms: None Reported Past Surgical History: Adenoidectomy, Back Surgery, Tonsillectomy Additional Past Surgical History / Comment(s): COLONOSCOPY , LEFT KNEE ARTHROSCOPY , RIGHT EAR SURGERY, RIGHT EYE CATARACT SURGERY , BACK SURGERY X2 1989, epideral for pain Past Anesthesia/Blood Transfusion Reactions: No Reported Reaction Past Psychological History: No Psychological Hx Reported Smoking Status: Former smoker Past Alcohol Use History: Rare Past Drug Use History: None Reported - Past Family History Mother Family Medical History: No Reported History Medications and Allergies Home Medications Medication Instructions Recorded Confirmed Type Losartan Potassium [Cozaar] 100 mg PO HS 08/18/19 09/01/24 History Atorvastatin [Lipitor] 20 mg PO HS 09/01/24 09/01/24 History metFORMIN HCL [Glucophage] 500 mg PO BID 09/01/24 09/01/24 History Allergies Allergy/AdvReac Type Severity Reaction Status Date / Time shellfish derived [Shellfish] Allergy Unknown Verified 09/01/24 13:51 Physical Exam Vitals: Vital Signs Temp Pulse Resp BP Pulse Ox 09/01/24 16:25 116 H 22 127/93 94 L 09/01/24 13:40 86 18 114/76 96 09/01/24 11:57 98.2 F 92 18 99/61 96 Intake and Output 09/01/24 09/01/24 09/01/24 06:59 14:59 22:59 Other: Weight 72.575 kg Results CBC & Chem 7: 09/01/24 13:16 09/01/24 13:16 Labs: Abnormal Lab Results - Last 24 Hours (Table) 09/01/24 09/01/24 09/01/24 Range/Units 13:16 13:16 13:16 WBC 18.9 H (3.8-10.6) k/uL RBC 4.08 L (4.30-5.90) m/uL Hct 38.3 L (39.0-53.0) % Neutrophils # 17.0 H (1.3-7.7) k/uL Lymphocytes # 0.6 L (1.0-4.8) k/uL PT 13.0 H (10.0-12.5) sec INR 1.2 H (<1.2) Sodium 126 L (137-145) mmol/L Chloride 94 L (98-107) mmol/L Carbon Dioxide 21 L (22-30) mmol/L BUN 22 H (9-20) mg/dL Creatinine 1.27 H (0.66-1.25) mg/dL Glucose 124 H (74-99) mg/dL Total Bilirubin 1.4 H (0.2-1.3) mg/dL Alkaline Phosphatase 26 L (38-126) U/L Creatine Kinase 1415 H* (55-170) U/L Urine Protein (Negative) Urine Blood (Negative) Ur Leukocyte Esterase (Negative) Urine RBC (0-5) /hpf Urine WBC (0-5) /hpf Urine Bacteria (None) /hpf Urine Mucus (None) /hpf / Range/Units 14:05 WBC (3.8-10.6) k/uL RBC (4.30-5.90) m/uL Hct (39.0-53.0) % Neutrophils # (1.3-7.7) k/uL Lymphocytes # (1.0-4.8) k/uL PT (10.0-12.5) sec INR (<1.2) Sodium (137-145) mmol/L Chloride (98-107) mmol/L Carbon Dioxide (22-30) mmol/L BUN (9-20) mg/dL Creatinine (0.66-1.25) mg/dL Glucose (74-99) mg/dL Total Bilirubin (0.2-1.3) mg/dL Alkaline Phosphatase (38-126) U/L Creatine Kinase (55-170) U/L Urine Protein Trace H (Negative) Urine Blood Small H (Negative) Ur Leukocyte Esterase Large H (Negative) Urine RBC 7 H (0-5) /hpf Urine WBC 131 H (0-5) /hpf Urine Bacteria Many H (None) /hpf Urine Mucus Rare H (None) /hpf
[2024-09-01 20:49] LABS: Glucose,Whole Blood 132 mg/dL (70-110)
[2024-09-01] MEDS ORDERED: metFORMIN 500 MG TAB PO SCH (21:00)
[2024-09-01] MEDS ORDERED: LOSARTAN 50 MG TAB PO SCH (21:00)
[2024-09-01] MEDS: INSULIN LISPRO (HumaLOG) 100 UNIT/ML 10 mL VL SQ SCH (21:24)
[2024-09-01] MEDS: ATORVASTATIN 20 MG TAB PO SCH (21:32)
[2024-09-01] MEDS: HEPARIN SODIUM,PORCINE 5,000 UNIT/ML 1 ML VIAL SQ SCH (21:32)
[2024-09-01 23:20] LABS: Glucose,Whole Blood 104 mg/dL (70-110)
[2024-09-01] MEDS: ACETAMINOPHEN TAB 325 MG TAB PO PRN (23:47)
[2024-09-02 02:12] LABS: Basophils % (A) 0 %; Eosinophils # (A) 0.2 k/uL (0-0.7); Eosinophils % (A) 1 %; HCT 39.1 % (39.0-53.0); HGB 13.3 gm/dL (13.0-17.5); Lymphocytes # (A) 0.4 k/uL (1.0-4.8); Lymphocytes % (A) 2 %; MCH 32.1 pg (25.0-35.0); MCHC 33.9 g/dL (31.0-37.0); MCV 94.7 fL (80.0-100.0); Mean Platelet Volume 6.7; Monocytes # (A) 0.6 k/uL (0-1.0); Monocytes % (A) 3 %; Neutrophils # (A) 19.3 k/uL (1.3-7.7); Neutrophils % (A) 93 %; Platelet Count 223 k/uL (150-450); RBC 4.13 m/uL (4.30-5.90); RDW 12.2 % (11.5-15.5); WBC 20.7 k/uL (3.8-10.6)
[2024-09-02 02:40] LABS: ALT 38 U/L (4-49); AST 82 U/L (17-59); African American GFR (CKD) 66 (>60 ml/min/1.73 sqM); Albumin 3.4 g/dL (3.5-5.0); Albumin/Globulin Ratio 1.2; Alkaline Phosphatase 23 U/L (38-126); Anion Gap 9 mmol/L; Blood Urea Nitrogen 22 mg/dL (9-20); Carbon Dioxide 23 mmol/L (22-30); Chloride 93 mmol/L (98-107); Globulin 2.8 g/dL; Glucose 106 mg/dL (74-99); Non-African American GFR(CKD) 57 (>60 ml/min/1.73 sqM); Potassium 3.9 mmol/L (3.5-5.1); Sodium 125 mmol/L (137-145); Total Bilirubin 1.2 mg/dL (0.2-1.3); Total Protein 6.2 g/dL (6.3-8.2)
[2024-09-02 06:32] LABS: Glucose,Whole Blood 101 mg/dL (70-110)
[2024-09-02 10:43] LABS: HCT 37.3 % (39.0-53.0); HGB 12.4 gm/dL (13.0-17.5); MCHC 33.3 g/dL (31.0-37.0); MCV 96.2 fL (80.0-100.0); Mean Platelet Volume 7.2; Platelet Count 211 k/uL (150-450); RBC 3.87 m/uL (4.30-5.90); RDW 12.7 % (11.5-15.5); WBC 27.1 k/uL (3.8-10.6)
[2024-09-02 11:17] LABS: African American GFR (CKD) 63 (>60 ml/min/1.73 sqM); Anion Gap 8 mmol/L; Blood Urea Nitrogen 24 mg/dL (9-20); Calcium 8.4 mg/dL (8.4-10.2); Carbon Dioxide 21 mmol/L (22-30); Chloride 95 mmol/L (98-107); Glucose 127 mg/dL (74-99); Non-African American GFR(CKD) 55 (>60 ml/min/1.73 sqM); Potassium 3.8 mmol/L (3.5-5.1); Sodium 124 mmol/L (137-145)
[2024-09-02 11:39] LABS: Glucose,Whole Blood 137 mg/dL (70-110)
[2024-09-02] MEDS: IBUPROFEN 400 MG TAB PO PRN (12:10)
--- NOTE | 2024-09-02 13:08 | P.PN ---
Subjective Progress Note Date: 09/02/24 73 year old M with PMH HTN, HLD, DM presents to the ED for generalized weakness and fever. Patient is a poor historian and history is obtained from charting. Patient reports inability to control his bladder. Apparently he had a Tmax of 103F at home which prompted this admission. He currently denies any headache, LE edema, N/V, cough, chest pain, shortness of breath, palpitations, changes in bowel habits. No changes in appetite or weight. No dizziness, numbness/weakness/tinging of the extremities. In the ED he underwent extensive evaluation. BP 99/61, HR 92, RR 18, T 98.2F, 96% on RA. CBC, Coag panel, CMP significant for WBC 18.9, RBC 4.08, Hct 38.3, PT 13, INR 1.2, Na 126, Cl 94, bicarb 21, BUN 22, Cr 1.27, glu 124, T. Bili 1.4, alk phos 26. Lactic acid 1.0. CPK 1415. UA large LE. COVID, RSV, Flu neg. CXR/Shoulder XR showed no acute process. Patient is admitted for further workup and management. 09/02 Patient was seen and examined. Continued fever and chills. Tmax 102.4F over the past 24H. BCx growing Enterococcus faecalis. Rocephin will be switched to Ampicillin and ID consulted. CBC and BMP significant for WBC 27.1, RBC 3.87, Hg 12.4, Hct 37.3, Na 124, Cl 95, bicarb 21, BUN 24, Cr 1.31, glu 127. General: non toxic, moderate distress, appears at stated age Derm: warm, dry Head: atraumatic, normocephalic, symmetric Mouth: no lip lesion, mucus membranes moist Cardiovascular: S1S2 tachy, no murmur Lungs: Decreased BS bilaterally, no accessory muscle use Abd: Non tender to palpation. Ext: no gross muscle atrophy, no edema, no contractures Neuro: no focal neuro deficits Psych: Alert and oriented. Based on my assessment of this patient, this patient meets a high complexity lev el of care. Sepsis and Enterococcus bacteremia secondary to UTI: Switch Rocephin to Ampicillin 2g IV Q4H. Follow final UCx + BCx. Repeat BCx ordered 09/02. Decreased LR from 130 to 75 cc/hr. Telemetry monitoring. Hyponatremia, Acute kidney injury and Hyperbilirubinemia likely secondary to dehydration: IV hydration as above. Hold Losartan. Repeat BMP in the AM. Rhabdomyolysis: IV hydration as above. Repeat BMP in the AM. Hypertension: Borderline low BP now. Hold Losartan. Monitor vitals and re-i ntroduce antihypertensive medication if necessary. Diabetes mellitus: ISS + Accuchecks ACHS along with hypoglycemic precautions. Obtain A1c. Dyslipidemia: Lipitor 20 mg PO QD. CODE STATUS: FULL CODE. DVT Prophylaxis: Heparin SQ GI Prophylaxis: Designated medical POA if patient is not able to make medical decisions for themselves: I have reviewed the following brand sales consultant notes: I have reviewed the results of the following tests: CBC, BMP, BCx. I have ordered the following tests: CBC, BMP in the AM. Repeat BCx. UCx pending. I have discussed the care of this patient with the following independent historian: , RN, Pharmacy. I have independently interpreted the following test below: I have discussed the management of this patient with the following physician: Dr. Foley. Objective - Vital Signs Vital signs: Vital Signs Temp 101 F H 09/02/24 12:09 Pulse 76 09/02/24 08:20 Resp 19 09/02/24 08:20 BP 130/67 09/02/24 08:20 Pulse Ox 94 L 09/02/24 08:20 FiO2 Intake & Output 09/01/24 09/02/24 09/02/24 18:59 06:59 18:59 Intake Total 1620 Output Total 1200 Balance 420 Weight 72.575 kg Intake: Oral 1620 Output: Urine 1200 Other: Voiding Method Toilet # Voids 8 # Bowel Movements 1 - Labs CBC & Chem 7: 09/02/24 10:33 09/02/24 10:33 Labs: Abnormal Lab Results - Last 24 Hours (Table) 09/01/24 09/01/24 09/01/24 Range/Units 13:16 13:16 13:16 WBC 18.9 H (3.8-10.6) k/uL RBC 4.08 L (4.30-5.90) m/uL Hgb (13.0-17.5) gm/dL Hct 38.3 L (39.0-53.0) % Neutrophils # 17.0 H (1.3-7.7) k/uL Lymphocytes # 0.6 L (1.0-4.8) k/uL PT 13.0 H (10.0-12.5) sec INR 1.2 H (<1.2) Sodium 126 L (137-145) mmol/L Chloride 94 L (98-107) mmol/L Carbon Dioxide 21 L (22-30) mmol/L BUN 22 H (9-20) mg/dL Creatinine 1.27 H (0.66-1.25) mg/dL Glucose 124 H (74-99) mg/dL POC Glucose (mg/dL) (70-110) mg/dL Total Bilirubin 1.4 H (0.2-1.3) mg/dL AST (17-59) U/L Alkaline Phosphatase 26 L (38-126) U/L Creatine Kinase 1415 H* (55-170) U/L Total Protein (6.3-8.2) g/dL Albumin (3.5-5.0) g/dL Urine Protein (Negative) Urine Blood (Negative) Ur Leukocyte Esterase (Negative) Urine RBC (0-5) /hpf Urine WBC (0-5) /hpf Urine Bacteria (None) /hpf Urine Mucus (None) /hpf 09/01/24 09/01/24 09/02/24 Range/Units 14:05 20:47 01:44 WBC 20.7 H (3.8-10.6) k/uL RBC 4.13 L (4.30-5.90) m/uL Hgb (13.0-17.5) gm/dL Hct (39.0-53.0) % Neutrophils # 19.3 H (1.3-7.7) k/uL Lymphocytes # 0.4 L (1.0-4.8) k/uL PT (10.0-12.5) sec INR (<1.2) Sodium (137-145) mmol/L Chloride (98-107) mmol/L Carbon Dioxide (22-30) mmol/L BUN (9-20) mg/dL Creatinine (0.66-1.25) mg/dL Glucose (74-99) mg/dL POC Glucose (mg/dL) 132 H (70-110) mg/dL Total Bilirubin (0.2-1.3) mg/dL AST (17-59) U/L Alkaline Phosphatase (38-126) U/L Creatine Kinase (55-170) U/L Total Protein (6.3-8.2) g/dL Albumin (3.5-5.0) g/dL Urine Protein Trace H (Negative) Urine Blood Small H (Negative) Ur Leukocyte Esterase Large H (Negative) Urine RBC 7 H (0-5) /hpf Urine WBC 131 H (0-5) /hpf Urine Bacteria Many H (None) /hpf Urine Mucus Rare H (None) /hpf 09/02/24 09/02/24 09/02/24 Range/Units 01:44 10:33 10:33 WBC 27.1 H (3.8-10.6) k/uL RBC 3.87 L (4.30-5.90) m/uL Hgb 12.4 L (13.0-17.5) gm/dL Hct 37.3 L (39.0-53.0) % Neutrophils # (1.3-7.7) k/uL Lymphocytes # (1.0-4.8) k/uL PT (10.0-12.5) sec INR (<1.2) Sodium 125 L 124 L (137-145) mmol/L Chloride 93 L 95 L (98-107) mmol/L Carbon Dioxide 21 L (22-30) mmol/L BUN 22 H 24 H (9-20) mg/dL Creatinine 1.26 H 1.31 H (0.66-1.25) mg/dL Glucose 106 H 127 H (74-99) mg/dL POC Glucose (mg/dL) (70-110) mg/dL Total Bilirubin (0.2-1.3) mg/dL AST 82 H (17-59) U/L Alkaline Phosphatase 23 L (38-126) U/L Creatine Kinase (55-170) U/L Total Protein 6.2 L (6.3-8.2) g/dL Albumin 3.4 L (3.5-5.0) g/dL Urine Protein (Negative) Urine Blood (Negative) Ur Leukocyte Esterase (Negative) Urine RBC (0-5) /hpf Urine WBC (0-5) /hpf Urine Bacteria (None) /hpf Urine Mucus (None) /hpf 09/02/24 Range/Units 11:36 WBC (3.8-10.6) k/uL RBC (4.30-5.90) m/uL Hgb (13.0-17.5) gm/dL Hct (39.0-53.0) % Neutrophils # (1.3-7.7) k/uL Lymphocytes # (1.0-4.8) k/uL PT (10.0-12.5) sec INR (<1.2) Sodium (137-145) mmol/L Chloride (98-107) mmol/L Carbon Dioxide (22-30) mmol/L BUN (9-20) mg/dL Creatinine (0.66-1.25) mg/dL Glucose (74-99) mg/dL POC Glucose (mg/dL) 137 H (70-110) mg/dL Total Bilirubin (0.2-1.3) mg/dL AST (17-59) U/L Alkaline Phosphatase (38-126) U/L Creatine Kinase (55-170) U/L Total Protein (6.3-8.2) g/dL Albumin (3.5-5.0) g/dL Urine Protein (Negative) Urine Blood (Negative) Ur Leukocyte Esterase (Negative) Urine RBC (0-5) /hpf Urine WBC (0-5) /hpf Urine Bacteria (None) /hpf Urine Mucus (None) /hpf Microbiology - Last 24 Hours (Table) 09/01/24 14:46 Blood Culture Gram Stain - Preliminary Blood Blood Culture - Preliminary Molecular ID
[2024-09-02] MEDS: AMPICILLIN 2,000 MG in SODIUM CHLORIDE 0.9% 100 ML IVPB SCH (13:23)
[2024-09-02 16:45] LABS: Glucose,Whole Blood 111 mg/dL (70-110)
[2024-09-02 20:59] LABS: Glucose,Whole Blood 113 mg/dL (70-110)
--- NOTE | 2024-09-02 23:17 | P.CONS ---
History of Present Illness - Reason for Consult Consult date: 09/02/24 Enterococcus faecalis bacteremia Requesting physician: Andreas Garibay - Chief Complaint Weakness and fever x days - History of Present Illness Patient is a 73-year-old male with a past medical history significant for hypertension osteoarthritis former smoker presenting to the hospital for evaluation of weakness and fever patient symptoms started the day before presentation to the hospital patient apparently also have multiple falls over the last few days has been complaining of some pain to the right shoulder area patient denies having any headache or URI symptoms no chest pain or shortness of breath he did have some cough but not bringing up any sputum patient denies any nausea no vomiting no abdominal pain apparently did have some difficulty urina tion as well as burning on presentation to the hospital patient was initially febrile subsequently did spike a fever of 102.4 degrees for night and did have a temperature of 101 F at noon, patient also tachycardic mildly hypotensive but not requiring any pressor support not hypoxic patient did have white count of 18.1 repeat is 27.1 BUN and creatinine has been elevated urine has been positive influenza RSV COVID testing negative patient blood cultures came back positive with Enterococcus faecalis with no resistance gene patient has been started on ampicillin 2 g every 4 hours prior to that he was on ceftriaxone infectious disease was consulted for further management of antibiotic therapy patient did have a chest x-ray no evidence for acute cardiopulmonary disease shoulder x-ray no acute fracture or dislocation Review of Systems Positive point and negatives has been mentioned in the HPI, complete review of systems was performed and all other systems are negative Past Medical History Past Medical History: Hypertension History of Any Multi-Drug Resistant Organisms: None Reported Past Surgical History: Adenoidectomy, Back Surgery, Tonsillectomy Additional Past Surgical History / Comment(s): COLONOSCOPY , LEFT KNEE ARTHROSCOPY , RIGHT EAR SURGERY, RIGHT EYE CATARACT SURGERY , BACK SURGERY X2 1989, epideral for pain Past Anesthesia/Blood Transfusion Reactions: No Reported Reaction Past Psychological History: No Psychological Hx Reported Smoking Status: Former smoker Past Alcohol Use History: Rare Past Drug Use History: None Reported - Past Family History Mother Family Medical History: No Reported History Medications and Allergies Home Medications Medication Instructions Recorded Confirmed Type Losartan Potassium [Cozaar] 100 mg PO HS 08/18/19 09/01/24 History Atorvastatin [Lipitor] 20 mg PO HS 09/01/24 09/01/24 History metFORMIN HCL [Glucophage] 500 mg PO BID 09/01/24 09/01/24 History Allergies Allergy/AdvReac Type Severity Reaction Status Date / Time shellfish derived [Shellfish] Allergy Unknown Verified 09/01/24 13:51 Physical Exam Vitals: Vital Signs Temp Pulse Pulse Pulse Resp BP BP 09/02/24 13:22 98.7 F 117 H 20 09/02/24 12:09 101 F H 09/02/24 08:20 98.2 F 76 19 09/02/24 05:54 98.1 F 09/02/24 01:51 99.8 F H 110 H 16 09/01/24 23:45 102.4 F H 128 H 28 H 09/01/24 19:55 98.8 F 115 H 17 150/88 09/01/24 16:25 116 H 22 127/93 BP Pulse Ox 09/02/24 13:22 91/60 92 L 09/02/24 12:09 09/02/24 08:20 130/67 94 L 09/02/24 05:54 09/02/24 01:51 110/66 93 L 09/01/24 23:45 153/92 95 09/01/24 19:55 96 09/01/24 16:25 94 L Intake and Output 09/01/24 09/02/24 09/02/24 22:59 06:59 14:59 Intake Total 540 1080 Output Total 550 650 600 Balance -10 430 -600 Intake: Oral 540 1080 Output: Urine 550 650 600 Other: Voiding Method Toilet # Voids 5 8 # Bowel Movements 1 1 Weight 72.575 kg GENERAL DESCRIPTION: Elderly male lying in bed, no distress. No tachypnea or accessory muscle of respiration use. HEENT: Shows Pallor , no scleral icterus. Oral mucous membrane is dry. NECK: Trachea central, no thyromegaly. LUNGS: Unlabored breathing. Clear to auscultation anteriorly. No wheeze or crackle. HEART: S1, S2, regular rate and rhythm. ABDOMEN: Soft, no tenderness , guarding or rigidity, no organomegaly EXTREMITIES: No edema of feet. SKIN: No rash, no masses palpable. NEUROLOGICAL: The patient is awake, alert, mood and affect normal. Results CBC & Chem 7: 09/02/24 10:33 09/02/24 10:33 Labs: Abnormal Lab Results - Last 24 Hours (Table) 09/01/24 09/02/24 09/02/24 Range/Units 20:47 01:44 01:44 WBC 20.7 H (3.8-10.6) k/uL RBC 4.13 L (4.30-5.90) m/uL Hgb (13.0-17.5) gm/dL Hct (39.0-53.0) % Neutrophils # 19.3 H (1.3-7.7) k/uL Lymphocytes # 0.4 L (1.0-4.8) k/uL Sodium 125 L (137-145) mmol/L Chloride 93 L (98-107) mmol/L Carbon Dioxide (22-30) mmol/L BUN 22 H (9-20) mg/dL Creatinine 1.26 H (0.66-1.25) mg/dL Glucose 106 H (74-99) mg/dL POC Glucose (mg/dL) 132 H (70-110) mg/dL AST 82 H (17-59) U/L Alkaline Phosphatase 23 L (38-126) U/L Total Protein 6.2 L (6.3-8.2) g/dL Albumin 3.4 L (3.5-5.0) g/dL 09/02/24 09/02/24 09/02/24 Range/Units 10:33 10:33 11:36 WBC 27.1 H (3.8-10.6) k/uL RBC 3.87 L (4.30-5.90) m/uL Hgb 12.4 L (13.0-17.5) gm/dL Hct 37.3 L (39.0-53.0) % Neutrophils # (1.3-7.7) k/uL Lymphocytes # (1.0-4.8) k/uL Sodium 124 L (137-145) mmol/L Chloride 95 L (98-107) mmol/L Carbon Dioxide 21 L (22-30) mmol/L BUN 24 H (9-20) mg/dL Creatinine 1.31 H (0.66-1.25) mg/dL Glucose 127 H (74-99) mg/dL POC Glucose (mg/dL) 137 H (70-110) mg/dL AST (17-59) U/L Alkaline Phosphatase (38-126) U/L Total Protein (6.3-8.2) g/dL Albumin (3.5-5.0) g/dL Microbiology - Last 24 Hours (Table) 09/01/24 14:46 Blood Culture Gram Stain - Preliminary Blood Blood Culture - Preliminary Molecular ID Assessment and Plan (1) Sepsis Current Visit: Yes Status: Acute Code(s): A41.9 - SEPSIS, UNSPECIFIED ORGANISM SNOMED Code(s): 80827494 (2) Bacteremia due to Enterococcus Current Visit: Yes Status: Acute Code(s): R78.81 - BACTEREMIA; B95.2 - ENTEROCOCCUS THE CAUSE OF DISEASES CLASSIFIED ELSEWHERE SNOMED Code(s): 0104925842 (3) Leukocytosis Current Visit: Yes Status: Acute Code(s): D72.829 - ELEVATED WHITE BLOOD CELL COUNT, UNSPECIFIED SNOMED Code(s): 265369412 (4) Urinary tract infection Current Visit: Yes Status: Acute Code(s): N39.0 - URINARY TRACT INFECTION, SITE NOT SPECIFIED SNOMED Code(s): 96040303 Plan: 1patient [facility] with sepsis in this patient who did have fever tachycardia mild hypotension elevated white count meeting criteria for SIRS/sepsis source is likely urinary in this patient who did have a urinary symptoms significantly positive UA. 2Enterococcus faecalis bacteremia source likely urinary. 3blood cultures will be repeated document clearance of his bacteremia. 4check ultrasound of the kidney bladder area to make sure no evidence of any structural abdominal responsible for this bacteremia. 5Rocephin has been discontinued patient started on ampicillin as there was no evidence of any resistance gene on Enterococcus faecalis await final sensitivity. We will follow on clinical condition and cultures to further adjust medication if needed Thank you for this consultation we will follow the patient along with you Dictation was produced using [employer] dictation software. please excuse any grammatical, word or spelling errors. Time with Patient: Greater than 30
[2024-09-03 06:34] LABS: Glucose,Whole Blood 111 mg/dL (70-110)
[2024-09-03 09:29] LABS: HCT 37.2 % (39.6-50.0); HGB 12.8 g/dL (13.0-17.0); MCH 32.7 pg (27.0-32.0); MCHC 34.4 g/dL (32.0-37.0); MCV 94.9 FL (80.0-97.0); Mean Platelet Volume 9.7 FL (9.5-12.2); NRBC Per 100 WBC 0 X 10*3/uL (0.00-0.01); Platelet Count 177 X 10*3/uL (140-440); RBC 3.92 X 10*6/uL (4.40-5.60); RDW 12.9 % (11.5-14.5); WBC 20.71 X 10*3/uL (4.50-10.00)
[2024-09-03 09:42] LABS: ALT 57 U/L (10-49); AST 112 U/L (14-35); Albumin 3.2 g/dL (3.8-4.9); Albumin/Globulin Ratio 1.28 Ratio (1.60-3.17); Alkaline Phosphatase 20 U/L (41-126); BUN/Creat Ratio 15.82 Ratio (12.00-20.00); Blood Urea Nitrogen 26.9 mg/dL (9.0-27.0); Calcium 8.6 mg/dL (8.7-10.3); Carbon Dioxide 21.3 mmol/L (21.6-31.8); Chloride 92 mmol/L (96-109); Globulin 2.5 g/dL (1.6-3.3); Glucose 97 mg/dL (70-110); Potassium 3.9 mmol/L (3.5-5.5); Sodium 127 mmol/L (135-145); Total Bilirubin 0.6 mg/dL (0.3-1.2); Total Protein 5.7 g/dL (6.2-8.2)
--- NOTE | 2024-09-03 10:40 | P.PN ---
Subjective Progress Note Date: 09/03/24 73 year old M with PMH HTN, HLD, DM presents to the ED for generalized weakness and fever. Patient is a poor historian and history is obtained from charting. Patient reports inability to control his bladder. Apparently he had a Tmax of 103F at home which prompted this admission. He currently denies any headache, LE edema, N/V, cough, chest pain, shortness of breath, palpitations, changes in bowel habits. No changes in appetite or weight. No dizziness, numbness/weakness/tinging of the extremities. In the ED he underwent extensive evaluation. BP 99/61, HR 92, RR 18, T 98.2F, 96% on RA. CBC, Coag panel, CMP significant for WBC 18.9, RBC 4.08, Hct 38.3, PT 13, INR 1.2, Na 126, Cl 94, bicarb 21, BUN 22, Cr 1.27, glu 124, T. Bili 1.4, alk phos 26. Lactic acid 1.0. CPK 1415. UA large LE. COVID, RSV, Flu neg. CXR/Shoulder XR showed no acute process. Patient is started on Rocephin for UTI sepsis and admitted for further workup and management. BCx growing Enterococcus faecalis, Rocephin switched to Ampicillin and ID consulted. 09/03 Patient was seen and examined. Feeling much better compared to yesterday. Tmax 101.6F over the past 24H. BCx growing Enterococcus faecalis. Antibiotics include Ampicillin 2g IV Q4H. ID recommends renal US to rule out structural issues. CBC and CMP significant for WBC 20.71, RBC 3.92, Hg 12.8, Hct 37.2, Na 127, Cl 92, bicarb 21.3, AG 13.7, Cr 1.7, glu 111, Ca 8.6, AST 112, ALT 57, alk phos 20, alb 3.2. General: non toxic, moderate distress, appears at stated age Derm: warm, dry Head: atraumatic, normocephalic, symmetric Mouth: no lip lesion, mucus membranes moist Cardiovascular: S1S2 tachy, no murmur Lungs: Decreased BS bilaterally, no accessory muscle use Abd: Non tender to palpation. Ext: no gross muscle atrophy, no edema, no contractures Neuro: no focal neuro deficits Psych: Alert and oriented. Based on my assessment of this patient, this patient meets a high complexity level of care. Sepsis and Enterococcus bacteremia secondary to UTI: Continue Ampicillin 2g IV Q4H (D2). Follow final UCx + BCx. Repeat BCx ordered 09/02. Renal US ordered by ID. Continue LR 75 cc/hr. Telemetry monitoring. Hyponatremia, DANDRE, AG metabolic acidosis secondary to dehydration: IV hydration as above. Hold Losartan. Repeat BMP in the AM. Rhabdomyolysis: IV hydration as above. Repeat BMP in the AM. Hypertension: Borderline low BP now. Hold Losartan. Monitor vitals and re- introduce antihypertensive medication if necessary. Diabetes mellitus: A1c 5.9. ISS + Accuchecks ACHS along with hypoglycemic precautions. Dyslipidemia: Lipitor 20 mg PO QD. CODE STATUS: FULL CODE. DVT Prophylaxis: Heparin SQ GI Prophylaxis: Designated medical POA if patient is not able to make medical decisions for themselves: I have reviewed the following infrastructure consultant notes: ID note. I have reviewed the results of the following tests: CBC, CMP. I have ordered the following tests: CBC, BMP in the AM. Repeat BCx 09/02 pending. UCx pending. I have discussed the care of this patient with the following independent historian: Family I have independently interpreted the following test below: I have discussed the management of this patient with the following physician: Objective - Vital Signs Vital signs: Vital Signs Temp 98.5 F 09/03/24 06:55 Pulse 106 H 09/03/24 06:55 Resp 18 09/03/24 06:55 BP 99/63 09/03/24 06:55 Pulse Ox 96 09/03/24 06:55 FiO2 Intake & Output 09/02/24 09/03/24 09/03/24 18:59 06:59 18:59 Output Total 1100 750 Balance -1100 -750 Output: Urine 1100 750 Other: Voiding Method External Catheter # Voids 2 2 # Bowel Movements 2 1 1 - Labs CBC & Chem 7: 09/03/24 03:22 09/03/24 03:22 Labs: Abnormal Lab Results - Last 24 Hours (Table) 09/02/24 09/02/24 09/02/24 Range/Units 10:33 10:33 11:36 WBC 27.1 H (3.8-10.6) k/uL RBC 3.87 L (4.30-5.90) m/uL Hgb 12.4 L (13.0-17.5) gm/dL Hct 37.3 L (39.0-53.0) % MCH (27.0-32.0) pg Sodium 124 L (137-145) mmol/L Chloride 95 L (98-107) mmol/L Carbon Dioxide 21 L (22-30) mmol/L Anion Gap (4.00-12.00) mmol/L BUN 24 H (9-20) mg/dL Creatinine 1.31 H (0.66-1.25) mg/dL Est GFR (CKD-EPI) (>=60) Glucose 127 H (74-99) mg/dL POC Glucose (mg/dL) 137 H (70-110) mg/dL Calcium (8.7-10.3) mg/dL AST (14-35) U/L ALT (10-49) U/L Alkaline Phosphatase (41-126) U/L Total Protein (6.2-8.2) g/dL Albumin (3.8-4.9) g/dL Albumin/Globulin Ratio (1.60-3.17) Ratio 09/02/24 09/02/24 09/03/24 Range/Units 16:43 20:57 03:22 WBC 20.71 H (3.8-10.6) k/uL RBC 3.92 L (4.30-5.90) m/uL Hgb 12.8 L (13.0-17.5) gm/dL Hct 37.2 L (39.0-53.0) % MCH 32.7 H (27.0-32.0) pg Sodium (137-145) mmol/L Chloride (98-107) mmol/L Carbon Dioxide (22-30) mmol/L Anion Gap (4.00-12.00) mmol/L BUN (9-20) mg/dL Creatinine (0.66-1.25) mg/dL Est GFR (CKD-EPI) (>=60) Glucose (74-99) mg/dL POC Glucose (mg/dL) 111 H 113 H (70-110) mg/dL Calcium (8.7-10.3) mg/dL AST (14-35) U/L ALT (10-49) U/L Alkaline Phosphatase (41-126) U/L Total Protein (6.2-8.2) g/dL Albumin (3.8-4.9) g/dL Albumin/Globulin Ratio (1.60-3.17) Ratio 09/03/24 09/03/24 Range/Units 03: 06:33 WBC (3.8-10.6) k/uL RBC (4.30-5.90) m/uL Hgb (13.0-17.5) gm/dL Hct (39.0-53.0) % MCH (27.0-32.0) pg Sodium 127 L (137-145) mmol/L Chloride 92 L (98-107) mmol/L Carbon Dioxide 21.3 L (22-30) mmol/L Anion Gap 13.70 H (4.00-12.00) mmol/L BUN (9-20) mg/dL Creatinine 1.7 H (0.66-1.25) mg/dL Est GFR (CKD-EPI) 43 L (>=60) Glucose (74-99) mg/dL POC Glucose (mg/dL) 111 H (70-110) mg/dL Calcium 8.6 L (8.7-10.3) mg/dL AST 112 H (14-35) U/L ALT 57 H (10-49) U/L Alkaline Phosphatase 20 L (41-126) U/L Total Protein 5.7 L (6.2-8.2) g/dL Albumin 3.2 L (3.8-4.9) g/dL Albumin/Globulin Ratio 1.28 L (1.60-3.17) Ratio Microbiology - Last 24 Hours (Table) 09/01/24 14:46 Blood Culture Gram Stain - Preliminary Blood Blood Culture - Preliminary Group D Enterococcus Molecular ID 09/01/24 14:05 Urine Culture - Preliminary Urine,Voided
--- NOTE | 2024-09-03 10:59 | US ---
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 Bladder: wnl There is no evidence for hydronephrosis at this point in time. No nephrolithiasis is seen. No brian s are identified. The urinary bladder is anechoic. IMPRESSION: Horseshoe type kidney. Left-sided kidney is suboptimally evaluated. No right-sided hydron ephrosis noted. [facility], , 09/03/2024 10:57 AM
[2024-09-03 11:00] LABS: Basophils # (A) 0.07 X 10*3/uL (0.00-0.10); Basophils % (A) 0.3 %; Eosinophils # (A) 0.04 X 10*3/uL (0.04-0.35); Eosinophils % (A) 0.2 %; Lymphocytes # (A) 0.32 X 10*3/uL (0.90-5.00); Lymphocytes % (A) 1.5 %; Monocytes # (A) 1.38 X 10*3/uL (0.20-1.00); Monocytes % (A) 6.7 %; Neutrophils # (A) 18.77 X 10*3/uL (1.80-7.70); Neutrophils % (A) 90.7 %
[2024-09-03 11:01] LABS: RBC Morphology Normal (Normal)
[2024-09-03 11:11] LABS: Glucose,Whole Blood 109 mg/dL (70-110)
--- NOTE | 2024-09-03 16:01 | P.PN ---
Subjective Progress Note Date: 09/03/24 Principal diagnosis: Reason for follow-up is UTI and bacteremia Patient is a 73-year-old male with a past medical history significant for hypertension osteoarthritis former smoker presenting to the hospital for evaluation of weakness and fever patient did have positive blood culture Enterococcus faecalis prompting this consultation. On today's evaluation that is 09/03/2024, Patient did have a fever of 101.6 at 4 AM however the patient is afebrile since then patient is currently on room air and denies having any shortness of breath, the patient denies any chest pain did have occasional cough, the patient denies any nausea vomiting did not have any abdominal pain and no diarrhea. Patient white count is down to 20.71, creatinine is 1.7 abdominal bladder ultrasound horseshoe type kidney no right-sided hydronephrosis Objective - Vital Signs Vital signs: Vital Signs Temp 98.4 F 09/03/24 13:53 Pulse 85 09/03/24 13:53 Resp 16 09/03/24 13:53 BP 130/80 09/03/24 13:53 Pulse Ox 92 L 09/03/24 13:53 FiO2 Intake & Output 09/02/24 09/03/24 09/03/24 18:59 06:59 18:59 Output Total 1100 750 Balance -1100 -750 Output: Urine 1100 750 Other: Voiding Method External Catheter # Voids 2 2 # Bowel Movements 2 1 1 - Exam GENERAL DESCRIPTION: An elderly male lying in bed in no distress RESPIRATORY SYSTEM: Unlabored breathing , decreased breath sounds at bases HEART: S1 S2 regular rate and rhythm , ABDOMEN: Soft , no tenderness EXTREMITIES: No edema feet - Labs CBC & Chem 7: 09/03/24 03:22 09/03/24 03:22 Labs: Abnormal Lab Results - Last 24 Hours (Table) 09/02/24 09/02/24 09/03/24 Range/Units 16:43 20:57 03:22 WBC 20.71 H (4.50-10.00) X 10*3/uL RBC 3.92 L (4.40-5.60) X 10*6/uL Hgb 12.8 L (13.0-17.0) g/dL Hct 37.2 L (39.6-50.0) % MCH 32.7 H (27.0-32.0) pg Immature Gran # 0.13 H (0.00-0.04) X 10*3/uL Neutrophils # 18.77 H (1.80-7.70) X 10*3/uL Lymphocytes # 0.32 L (0.90-5.00) X 10*3/uL Monocytes # 1.38 H (0.20-1.00) X 10*3/uL Sodium (135-145) mmol/L Chloride (96-109) mmol/L Carbon Dioxide (21.6-31.8) mmol/L Anion Gap (4.00-12.00) mmol/L Creatinine (0.6-1.5) mg/dL Est GFR (CKD-EPI) (>=60) POC Glucose (mg/dL) 111 H 113 H (70-110) mg/dL Calcium (8.7-10.3) mg/dL AST (14-35) U/L ALT (10-49) U/L Alkaline Phosphatase (41-126) U/L Total Protein (6.2-8.2) g/dL Albumin (3.8-4.9) g/dL Albumin/Globulin Ratio (1.60-3.17) Ratio 09/03/24 09/03/24 Range/Units 03:22 06:33 WBC (4.50-10.00) X 10*3/uL RBC (4.40-5.60) X 10*6/uL Hgb (13.0-17.0) g/dL Hct (39.6-50.0) % MCH (27.0-32.0) pg Immature Gran # (0.00-0.04) X 10*3/uL Neutrophils # (1.80-7.70) X 10*3/uL Lymphocytes # (0.90-5.00) X 10*3/uL Monocytes # (0.20-1.00) X 10*3/uL Sodium 127 L (135-145) mmol/L Chloride 92 L (96-109) mmol/L Carbon Dioxide 21.3 L (21.6-31.8) mmol/L Anion Gap 13.70 H (4.00-12.00) mmol/L Creatinine 1.7 H (0.6-1.5) mg/dL Est GFR (CKD-EPI) 43 L (>=60) POC Glucose (mg/dL) 111 H (70-110) mg/dL Calcium 8.6 L (8.7-10.3) mg/dL AST 112 H (14-35) U/L ALT 57 H (10-49) U/L Alkaline Phosphatase 20 L (41-126) U/L Total Protein 5.7 L (6.2-8.2) g/dL Albumin 3.2 L (3.8-4.9) g/dL Albumin/Globulin Ratio 1.28 L (1.60-3.17) Ratio Microbiology - Last 24 Hours (Table) 09/01/24 14:46 Blood Culture Gram Stain - Preliminary Blood Blood Culture - Preliminary Group D Enterococcus Molecular ID 09/01/24 14:05 Urine Culture - Preliminary Urine,Voided Assessment and Plan (1) Sepsis Current Visit: Yes Status: Acute Code(s): A41.9 - SEPSIS, UNSPECIFIED ORGANISM SNOMED Code(s): 71884711 (2) Bacteremia due to Enterococcus Current Visit: Yes Status: Acute Code(s): R78.81 - BACTEREMIA; B95.2 - ENTEROCOCCUS THE CAUSE OF DISEASES CLASSIFIED ELSEWHERE SNOMED Code(s): 5104075757 (3) Leukocytosis Current Visit: Yes Status: Acute Code(s): D72.829 - ELEVATED WHITE BLOOD CELL COUNT, UNSPECIFIED SNOMED Code(s): 960257918 (4) Urinary tract infection Current Visit: Yes Status: Acute Code(s): N39.0 - URINARY TRACT INFECTION, SITE NOT SPECIFIED SNOMED Code(s): 36595547 Plan: 1patient presented hospital with sepsis in this patient who did have fever tachycardia mild hypotension elevated white count meeting criteria for SIRS/sepsis source is likely urinary in this patient who did have a urinary symptoms significantly positive UA. 2Enterococcus faecalis bacteremia source likely urinary. 3blood cultures has been repeated document clearance of his bacteremia currently pending. 4ultrasound of the kidney bladder area suggestive horseshoe kidney but no hernia. The right side 5patient currently being treated with ampicillin and the white count is t rending down we will monitor closely await final sensitivity Dictation was produced using [employer] dictation software. please excuse any grammatical, word or spelling errors. Time with Patient: Less than 30
[2024-09-03 16:41] LABS: Glucose,Whole Blood 119 mg/dL (70-110)
[2024-09-03 21:25] LABS: Glucose,Whole Blood 130 mg/dL (70-110)
[2024-09-04 04:26] LABS: HCT 34.5 % (39.0-53.0); HGB 11.8 gm/dL (13.0-17.5); MCHC 34.2 g/dL (31.0-37.0); MCV 93.6 fL (80.0-100.0); Mean Platelet Volume 7.5; Platelet Count 194 k/uL (150-450); RBC 3.69 m/uL (4.30-5.90); RDW 12.4 % (11.5-15.5); WBC 15.8 k/uL (3.8-10.6)
[2024-09-04 04:33] LABS: African American GFR (CKD) 53 (>60 ml/min/1.73 sqM); Anion Gap 8 mmol/L; Blood Urea Nitrogen 28 mg/dL (9-20); Calcium 8.2 mg/dL (8.4-10.2); Carbon Dioxide 23 mmol/L (22-30); Chloride 94 mmol/L (98-107); Glucose 107 mg/dL (74-99); Non-African American GFR(CKD) 46 (>60 ml/min/1.73 sqM); Potassium 3.5 mmol/L (3.5-5.1); Sodium 125 mmol/L (137-145)
[2024-09-04 06:19] LABS: Glucose,Whole Blood 106 mg/dL (70-110)
[2024-09-04 11:37] LABS: Glucose,Whole Blood 133 mg/dL (70-110)
--- NOTE | 2024-09-04 14:46 | P.PN ---
Subjective Progress Note Date: 09/04/24 Hospital Course: 73 year old M with PMH HTN, HLD, DM presents to the ED for generalized weakness and fever. Patient is a poor historian and history is obtained from charting. Patient reports inability to control his bladder. Apparently he had a Tmax of 103F at home which prompted this admission. He currently denies any headache, LE edema, N/V, cough, chest pain, shortness of breath, palpitations, changes in bowel habits. No changes in appetite or weight. No dizziness, numbness/weakness/tinging of the extremities. In the ED he underwent extensive evaluation. BP 99/61, HR 92, RR 18, T 98.2F, 96% on RA. CBC, Coag panel, CMP significant for WBC 18.9, RBC 4.08, Hct 38.3, PT 13, INR 1.2, Na 126, Cl 94, bicarb 21, BUN 22, Cr 1.27, glu 124, T. Bili 1.4, alk phos 26. Lactic acid 1.0. CPK 1415. UA large LE. COVID, RSV, Flu neg. CXR/Shoulder XR showed no acute process. Patient is started on Rocephin for UTI sepsis and admitted for further workup and management. BCx growing Enterococcus faecalis, Rocephin switched to Ampicillin and ID consulted. Urine and blood cultures growing Enterococcus faecalis. 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 His RN brought up concern of his continued issues with imbalance. Neurological exam was performed on 09/04, showed 5 out of 5 muscle strength in all extremities, normal finger-nose and Romberg, no nystagmus. Pertinent Imaging: No new imaging Subjective: Seen and examined at bedside, able to ambulate in use bathroom, still feels generally weak Pertinent positives and negatives as discussed above, a complete review of systems was performed and all other systems are negative. Vitals Signs Reviewed. General: [nontoxic], [no distress], [appears at stated age] Derm: [warm], [dry] Head: [atraumatic], [normocephalic], [symmetric] Eyes: [EOMI], [no lid lag], [anicteric sclera] Mouth: [no lip lesion], [mucus membranes moist] Cardiovascular: [S1S2 reg], [no murmur] Lungs: [CTA bilateral], [no rhonchi, no rales] , [no accessory muscle use] Abdominal: [soft], [ nontender to palpation], [no guarding], [no appreciable organomegaly] Ext: [no gross muscle atrophy], [no edema], [no contractures] Neuro: [ CN II-XI grossly intact], [no focal neuro deficits] Psych: [Alert], [oriented], [appropriate affect] Data Reviewed Today: Pertinent Labs: WBC 15.8, hemoglobin 11.8, normal platelet count, sodium 125, potassium 3.5, creatinine 1.52, glucose is controlled Assessment and Plan: Sepsis secondary to Enterococcus UTI and bacteremia -Continue on ampicillin SOT 09/02 -ID following -Repeat blood cultures from 09/02, pending DANDRE, likely prerenal secondary to dehydration Metabolic acidosis secondary to above Hypovolemic hyponatremia Rhabdomyolysis -Fluids switched from LR to normal saline due to sodium dropping down back to 125, monitor BMP Diabetes mellitus: A1c 5.9. ISS + Accuchecks ACHS along with hypoglycemic precautions. Dyslipidemia: Lipitor 20 mg PO QD. DVT ppx: Subcu heparin Code status: Full code Anticipated discharge place: Home Anticipated discharge time: 24 to 48 hours Objective - Vital Signs Vital signs: Vital Signs Temp 98.6 F 09/04/24 07:00 Pulse 106 H 09/04/24 07:00 Resp 18 09/04/24 07:00 BP 104/74 09/04/24 07:00 Pulse Ox 95 09/04/24 07:00 FiO2 Intake & Output 09/03/24 09/04/24 09/04/24 18:59 06:59 18:59 Intake Total 150 Balance 150 Intake: Oral 150 Other: Voiding Method Toilet Diaper # Voids 3 4 # Bowel Movements 0 - Labs CBC & Chem 7: 09/04/24 03:21 09/04/24 03:21 Labs: Abnormal Lab Results - Last 24 Hours (Table) 09/03/24 09/03/24 09/04/24 Range/Units 16:30 21:23 03:21 WBC 15.8 H (3.8-10.6) k/uL RBC 3.69 L (4.30-5.90) m/uL Hgb 11.8 L (13.0-17.5) gm/dL Hct 34.5 L (39.0-53.0) % Sodium (137-145) mmol/L Chloride (98-107) mmol/L BUN (9-20) mg/dL Creatinine (0.66-1.25) mg/dL Glucose (74-99) mg/dL POC Glucose (mg/dL) 119 H 130 H (70-110) mg/dL Calcium (8.4-10.2) mg/dL 09/04/24 09/04/24 Range/Units 03: 11:35 WBC (3.8-10.6) k/uL RBC (4.30-5.90) m/uL Hgb (13.0-17.5) gm/dL Hct (39.0-53.0) % Sodium 125 L (137-145) mmol/L Chloride 94 L (98-107) mmol/L BUN 28 H (9-20) mg/dL Creatinine 1.52 H (0.66-1.25) mg/dL Glucose 107 H (74-99) mg/dL POC Glucose (mg/dL) 133 H (70-110) mg/dL Calcium 8.2 L (8.4-10.2) mg/dL Microbiology - Last 24 Hours (Table) 09/01/24 14:46 Blood Culture Gram Stain - Final Blood Blood Culture - Final Enterococcus faecalis Molecular ID 09/01/24 14:05 Urine Culture - Final Urine,Voided Enterococcus faecalis
[2024-09-04 16:48] LABS: Glucose,Whole Blood 106 mg/dL (70-110)
--- NOTE | 2024-09-04 17:08 | P.PN ---
Subjective Progress Note Date: 09/04/24 Principal diagnosis: Reason for follow-up is UTI and bacteremia Patient is a 73-year-old male with a past medical history significant for hypertension osteoarthritis former smoker presenting to the hospital for evaluation of weakness and fever patient did have positive blood culture Enterococcus faecalis prompting this consultation. On today's evaluation that is 09/04/2024, patient has been afebrile, patient is breathing comfortably and is currently on room air, patient denies having any significant chest pain did have some cough and bring up some sputum, patient denies nausea vomiting or diarrhea and no abdominal pain. Patient white count is down to 15.8, creatinine is 1.52 blood culture repeat currently pending Objective - Vital Signs Vital signs: Vital Signs Temp 98.6 F 09/04/24 07:00 Pulse 106 H 09/04/24 07:00 Resp 18 09/04/24 07:00 BP 104/74 09/04/24 07:00 Pulse Ox 95 09/04/24 07:00 FiO2 Intake & Output 09/03/24 09/04/24 09/04/24 18:59 06:59 18:59 Intake Total 150 Balance 150 Intake: Oral 150 Other: Voiding Method Toilet Diaper # Voids 3 4 # Bowel Movements 0 - Exam GENERAL DESCRIPTION: An elderly male lying in bed in no distress RESPIRATORY SYSTEM: Unlabored breathing , decreased breath sounds at bases HEART: S1 S2 regular rate and rhythm , ABDOMEN: Soft , no tenderness EXTREMITIES: No edema feet - Labs CBC & Chem 7: 09/04/24 03:21 09/04/24 03:21 Labs: Abnormal Lab Results - Last 24 Hours (Table) 09/03/24 09/03/24 09/04/24 Range/Units 16:30 21:23 03:21 WBC 15.8 H (3.8-10.6) k/uL RBC 3.69 L (4.30-5.90) m/uL Hgb 11.8 L (13.0-17.5) gm/dL Hct 34.5 L (39.0-53.0) % Sodium (137-145) mmol/L Chloride (98-107) mmol/L BUN (9-20) mg/dL Creatinine (0.66-1.25) mg/dL Glucose (74-99) mg/dL POC Glucose (mg/dL) 119 H 130 H (70-110) mg/dL Calcium (8.4-10.2) mg/dL 09/04/24 09/04/24 Range/Units 03:21 11:35 WBC (3.8-10.6) k/uL RBC (4.30-5.90) m/uL Hgb (13.0-17.5) gm/dL Hct (39.0-53.0) % Sodium 125 L (137-145) mmol/L Chloride 94 L (98-107) mmol/L BUN 28 H (9-20) mg/dL Creatinine 1.52 H (0.66-1.25) mg/dL Glucose 107 H (74-99) mg/dL POC Glucose (mg/dL) 133 H (70-110) mg/dL Calcium 8.2 L (8.4-10.2) mg/dL Microbiology - Last 24 Hours (Table) 09/01/24 14:46 Blood Culture Gram Stain - Final Blood Blood Culture - Final Enterococcus faecalis Molecular ID 09/01/24 14:05 Urine Culture - Final Urine,Voided Enterococcus faecalis Assessment and Plan (1) Sepsis Current Visit: Yes Status: Acute Code(s): A41.9 - SEPSIS, UNSPECIFIED ORGANISM SNOMED Code(s): 86451776 (2) Bacteremia due to Enterococcus Current Visit: Yes Status: Acute Code(s): R78.81 - BACTEREMIA; B95.2 - ENTEROCOCCUS THE CAUSE OF DISEASES CLASSIFIED ELSEWHERE SNOMED Code(s): 2082652128 (3) Leukocytosis Current Visit: Yes Status: Acute Code(s): D72.829 - ELEVATED WHITE BLOOD CELL COUNT, UNSPECIFIED SNOMED Code(s): 153329700 (4) Urinary tract infection Current Visit: Yes Status: Acute Code(s): N39.0 - URINARY TRACT INFECTION, SITE NOT SPECIFIED SNOMED Code(s): 68230141 Plan: 1patient presented hospital with sepsis in this patient who did have fever tachycardia mild hypotension elevated white count meeting criteria for SIRS/sepsis source is likely urinary in this patient who did have a urinary symptoms significantly positive UA. 2Enterococcus faecalis bacteremia source likely urinary. 3blood cultures has been repeated document clearance of his bacteremia which currently pending. 4ultrasound of the kidney bladder area suggestive horseshoe kidney but no hyd ronephrosis on right side 5patient will be treated with ampicillin will wait for repeat culture to finalize Dictation was produced using [employer] software. please excuse any grammatical, word or spelling errors. Time with Patient: Less than 30
[2024-09-04] MEDS: AMPICILLIN 2,000 MG in SODIUM CHLORIDE 0.9% 100 ML IVPB SCH (18:15)
[2024-09-04] MEDS: SODIUM CHLORIDE 0.9% 1,000 ML IV SCH (20:11)
[2024-09-04 21:05] LABS: Glucose,Whole Blood 128 mg/dL (70-110)
[2024-09-05 06:18] LABS: Glucose,Whole Blood 115 mg/dL (70-110)
[2024-09-05 08:16] LABS: Basophils # (A) 0.04 X 10*3/uL (0.00-0.10); Basophils % (A) 0.4 %; Eosinophils # (A) 0.01 X 10*3/uL (0.04-0.35); Eosinophils % (A) 0.1 %; HCT 31.6 % (39.6-50.0); Lymphocytes # (A) 0.49 X 10*3/uL (0.90-5.00); Lymphocytes % (A) 4.6 %; MCH 32.5 pg (27.0-32.0); MCHC 34.8 g/dL (32.0-37.0); MCV 93.5 FL (80.0-97.0); Monocytes # (A) 1.29 X 10*3/uL (0.20-1.00); Monocytes % (A) 12.2 %; NRBC Per 100 WBC 0 X 10*3/uL (0.00-0.01); Neutrophils # (A) 8.68 X 10*3/uL (1.80-7.70); Neutrophils % (A) 81.9 %; Platelet Count 192 X 10*3/uL (140-440); RBC 3.38 X 10*6/uL (4.40-5.60); RDW 13.5 % (11.5-14.5)
[2024-09-05 08:58] LABS: BUN/Creat Ratio 15.82 Ratio (12.00-20.00); Blood Urea Nitrogen 26.9 mg/dL (9.0-27.0); Calcium 8.3 mg/dL (8.7-10.3); Carbon Dioxide 23.1 mmol/L (21.6-31.8); Chloride 97 mmol/L (96-109); Glucose 111 mg/dL (70-110); Potassium 3.4 mmol/L (3.5-5.5); Sodium 131 mmol/L (135-145)
[2024-09-05 11:30] LABS: Glucose,Whole Blood 152 mg/dL (70-110)
--- NOTE | 2024-09-05 13:17 | P.PN ---
Subjective Progress Note Date: 09/05/24 Hospital Course: 73 year old M with PMH HTN, HLD, DM presents to the ED for generalized weakness and fever. Patient is a poor historian and history is obtained from charting. Patient reports inability to control his bladder. Apparently he had a Tmax of 103F at home which prompted this admission. He currently denies any headache, LE edema, N/V, cough, chest pain, shortness of breath, palpitations, changes in bowel habits. No changes in appetite or weight. No dizziness, numbness/weakness/tinging of the extremities. In the ED he underwent extensive evaluation. BP 99/61, HR 92, RR 18, T 98.2F, 96% on RA. CBC, Coag panel, CMP significant for WBC 18.9, RBC 4.08, Hct 38.3, PT 13, INR 1.2, Na 126, Cl 94, bicarb 21, BUN 22, Cr 1.27, glu 124, T. Bili 1.4, alk phos 26. Lactic acid 1.0. CPK 1415. UA large LE. COVID, RSV, Flu neg. CXR/Shoulder XR showed no acute process. Patient is started on Rocephin for UTI sepsis and admitted for further workup and management. BCx growing Enterococcus faecalis, Rocephin switched to Ampicillin and ID consulted. Urine and blood cultures growing Enterococcus faecalis. 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 His RN brought up concern of his continued issues with imbalance. Neurological exam was performed on 09/04, showed 5 out of 5 muscle strength in all extremities, normal finger-nose and Romberg, no nystagmus. 09/05: Feeling well, no active complaints, pending final repeat blood cultures to determine discharge plan Pertinent Imaging: No new imaging Subjective: Seen and examined at bedside, able to ambulate in use bathroom, still feels generally weak Pertinent positives and negatives as discussed above, a complete review of systems was performed and all other systems are negative. Vitals Signs Reviewed. General: [nontoxic], [no distress], [appears at stated age] Derm: [warm], [dry] Head: [atraumatic], [normocephalic], [symmetric] Eyes: [EOMI], [no lid lag], [anicteric sclera] Mouth: [no lip lesion], [mucus membranes moist] Cardiovascular: [S1S2 reg], [no murmur] Lungs: [CTA bilateral], [no rhonchi, no rales] , [no accessory muscle use] Abdominal: [soft], [ nontender to palpation], [no guarding], [no appreciable organomegaly] Ext: [no gross muscle atrophy], [no edema], [no contractures] Neuro: [ CN II-XI grossly intact], [no focal neuro deficits] Psych: [Alert], [oriented], [appropriate affect] Data Reviewed Today: Pertinent Labs: WBC trending down 10.6, hemoglobin stable 11.0, platelet count normal, sodium 131, potassium 3.4, creatinine 1.7 Assessment and Plan: Sepsis secondary to Enterococcus UTI and bacteremia -Continue on ampicillin SOT 09/02 -ID following -Repeat blood cultures from 09/02, pending, preliminary negative DANDRE, likely prerenal secondary to dehydration Metabolic acidosis secondary to above Hypovolemic hyponatremia Rhabdomyolysis -Sodium improved, creatinine is rising, resumed IV fluids with normal saline 75 cc/h Diabetes mellitus: A1c 5.9. ISS + Accuchecks ACHS along with hypoglycemic precautions. Dyslipidemia: Lipitor 20 mg PO QD. DVT ppx: Subcu heparin Code status: Full code Anticipated discharge place: Home Anticipated discharge time: once repeat blood cx finalized Objective - Vital Signs Vital signs: Vital Signs Temp 98.1 F 09/05/24 06:50 Pulse 98 09/05/24 06:50 Resp 17 09/05/24 06:50 BP 142/70 09/05/24 06:50 Pulse Ox 94 L 09/05/24 06:50 FiO2 Intake & Output 09/04/24 09/05/24 09/05/24 18:59 06:59 18:59 Intake Total 350 Output Total 827 452 8760 Balance -25 500 -1100 Intake: Oral 350 Output: Urine 530 499 1782 Other: Voiding Method Toilet Toilet Diaper Diaper # Voids 3 3 - Labs CBC & Chem 7: 09/05/24 03:28 09/05/24 03:28 Labs: Abnormal Lab Results - Last 24 Hours (Table) 09/04/24 09/05/24 09/05/24 Range/Units 21:03 03:28 03:28 WBC 10.60 H (4.50-10.00) X 10*3/uL RBC 3.38 L (4.40-5.60) X 10*6/uL Hgb 11.0 L (13.0-17.0) g/dL Hct 31.6 L (39.6-50.0) % MCH 32.5 H (27.0-32.0) pg Immature Gran # 0.09 H (0.00-0.04) X 10*3/uL Neutrophils # 8.68 H (1.80-7.70) X 10*3/uL Lymphocytes # 0.49 L (0.90-5.00) X 10*3/uL Monocytes # 1.29 H (0.20-1.00) X 10*3/uL Eosinophils # 0.01 L (0.04-0.35) X 10*3/uL Sodium 131 L (135-145) mmol/L Potassium 3.4 L (3.5-5.5) mmol/L Creatinine 1.7 H (0.6-1.5) mg/dL Est GFR (CKD-EPI) 43 L (>=60) Glucose 111 H (70-110) mg/dL POC Glucose (mg/dL) 128 H (70-110) mg/dL Calcium 8.3 L (8.7-10.3) mg/dL 09/05/09/05/24 Range/Units 06:17 11:29 WBC (4.50-10.00) X 10*3/uL RBC (4.40-5.60) X 10*6/uL Hgb (13.0-17.0) g/dL Hct (39.6-50.0) % MCH (27.0-32.0) pg Immature Gran # (0.00-0.04) X 10*3/uL Neutrophils # (1.80-7.70) X 10*3/uL Lymphocytes # (0.90-5.00) X 10*3/uL Monocytes # (0.20-1.00) X 10*3/uL Eosinophils # (0.04-0.35) X 10*3/uL Sodium (135-145) mmol/L Potassium (3.5-5.5) mmol/L Creatinine (0.6-1.5) mg/dL Est GFR (CKD-EPI) (>=60) Glucose (70-110) mg/dL POC Glucose (mg/dL) 115 H 152 H (70-110) mg/dL Calcium (8.7-10.3) mg/dL Microbiology - Last 24 Hours (Table) 09/03/24 14:41 Blood Culture - Preliminary Blood 09/01/24 14:46 Blood Culture Gram Stain - Final Blood Blood Culture - Final Enterococcus faecalis Molecular ID
[2024-09-05] MEDS: POTASSIUM CHLORIDE ER 20 MEQ TAB.ER PO STA (14:03)
[2024-09-05] MEDS: SODIUM CHLORIDE 0.9% 1,000 ML IV SCH (14:04)
--- NOTE | 2024-09-05 15:12 | P.PN ---
Subjective Progress Note Date: 09/05/24 Principal diagnosis: Reason for follow-up is UTI and bacteremia Patient is a 73-year-old male with a past medical history significant for hypertension osteoarthritis former smoker presenting to the hospital for evaluation of weakness and fever patient did have positive blood culture Enterococcus faecalis prompting this consultation. On today's evaluation that is 09/05/2024, Patient is afebrile this morning patient denies having any chest pain shortness of breath send complaining of cough and bring up some sputum, the patient is currently on room air, patient denies any abdominal pain no diarrhea no nausea no vomiting. Patient white count is down to 10.60, creatinine is 1.7 blood culture repeat so far negative Objective - Vital Signs Vital signs: Vital Signs Temp 98.3 F 09/05/24 14:00 Pulse 78 09/05/24 14:00 Resp 14 09/05/24 14:00 BP 168/87 09/05/24 14:00 Pulse Ox 94 L 09/05/24 06:50 FiO2 Intake & Output 09/04/24 09/05/24 09/05/24 18:59 06:59 18:59 Intake Total 350 Output Total 842 504 2051 Balance -25 500 -1100 Intake: Oral 350 Output: Urine 104 623 6064 Other: Voiding Method Toilet Toilet Diaper Diaper # Voids 3 3 - Exam GENERAL DESCRIPTION: An elderly male lying in bed in no distress RESPIRATORY SYSTEM: Unlabored breathing , decreased breath sounds at bases HEART: S1 S2 regular rate and rhythm , ABDOMEN: Soft , no tenderness EXTREMITIES: No edema feet - Labs CBC & Chem 7: 09/05/24 03:28 09/05/24 03:28 Labs: Abnormal Lab Results - Last 24 Hours (Table) 09/04/24 09/05/24 09/05/24 Range/Units 21:03 03:28 03:28 WBC 10.60 H (4.50-10.00) X 10*3/uL RBC 3.38 L (4.40-5.60) X 10*6/uL Hgb 11.0 L (13.0-17.0) g/dL Hct 31.6 L (39.6-50.0) % MCH 32.5 H (27.0-32.0) pg Immature Gran # 0.09 H (0.00-0.04) X 10*3/uL Neutrophils # 8.68 H (1.80-7.70) X 10*3/uL Lymphocytes # 0.49 L (0.90-5.00) X 10*3/uL Monocytes # 1.29 H (0.20-1.00) X 10*3/uL Eosinophils # 0.01 L (0.04-0.35) X 10*3/uL Sodium 131 L (135-145) mmol/L Potassium 3.4 L (3.5-5.5) mmol/L Creatinine 1.7 H (0.6-1.5) mg/dL Est GFR (CKD-EPI) 43 L (>=60) Glucose 111 H (70-110) mg/dL POC Glucose (mg/dL) 128 H (70-110) mg/dL Calcium 8.3 L (8.7-10.3) mg/dL 09/05/24 09/05/24 Range/Units 06:17 11:29 WBC (4.50-10.00) X 10*3/uL RBC (4.40-5.60) X 10*6/uL Hgb (13.0-17.0) g/dL Hct (39.6-50.0) % MCH (27.0-32.0) pg Immature Gran # (0.00-0.04) X 10*3/uL Neutrophils # (1.80-7.70) X 10*3/uL Lymphocytes # (0.90-5.00) X 10*3/uL Monocytes # (0.20-1.00) X 10*3/uL Eosinophils # (0.04-0.35) X 10*3/uL Sodium (135-145) mmol/L Potassium (3.5-5.5) mmol/L Creatinine (0.6-1.5) mg/dL Est GFR (CKD-EPI) (>=60) Glucose (70-110) mg/dL POC Glucose (mg/dL) 115 H 152 H (70-110) mg/dL Calcium (8.7-10.3) mg/dL Microbiology - Last 24 Hours (Table) 09/03/24 14:41 Blood Culture - Preliminary Blood Assessment and Plan (1) Sepsis Current Visit: Yes Status: Acute Code(s): A41.9 - SEPSIS, UNSPECIFIED ORGANISM SNOMED Code(s): 35780009 (2) Bacteremia due to Enterococcus Current Visit: Yes Status: Acute Code(s): R78.81 - BACTEREMIA; B95.2 - ENTEROCOCCUS THE CAUSE OF DISEASES CLASSIFIED ELSEWHERE SNOMED Code(s): 4052453852 (3) Leukocytosis Current Visit: Yes Status: Acute Code(s): D72.829 - ELEVATED WHITE BLOOD CELL COUNT, UNSPECIFIED SNOMED Code(s): 617540913 (4) Urinary tract infection Current Visit: Yes Status: Acute Code(s): N39.0 - URINARY TRACT INFECTION, SITE NOT SPECIFIED SNOMED Code(s): 49073115 Plan: 1patient presented hospital with sepsis in this patient who did have fever tachycardia mild hypotension elevated white count meeting criteria for SIRS/sepsis source is likely urinary in this patient who did have a urinary symp toms significantly positive UA. 2Enterococcus faecalis bacteremia source likely urinary. 3blood cultures has been repeated document clearance of his bacteremia which currently pending. 4ultrasound of the kidney bladder area suggestive horseshoe kidney but no hydronephrosis on right side 5patient white count is trending down repeat blood culture for negative remains to be negative will plan to finish therapy with oral amoxicillin Dictation was produced using [employer] dictation software. please excuse any grammatical, word or spelling errors. Time with Patient: Less than 30
[2024-09-05 16:50] LABS: Glucose,Whole Blood 112 mg/dL (70-110)
[2024-09-05 20:46] LABS: Glucose,Whole Blood 114 mg/dL (70-110)
[2024-09-06 06:14] LABS: Glucose,Whole Blood 104 mg/dL (70-110)
[2024-09-06 08:33] VITALS: BP 138/74; PULSE 88; RESP 18; TEMP 98.4
[2024-09-06 08:33] LABS: BUN/Creat Ratio 15.25 Ratio (12.00-20.00); Blood Urea Nitrogen 24.4 mg/dL (9.0-27.0); Calcium 8.4 mg/dL (8.7-10.3); Carbon Dioxide 21.8 mmol/L (21.6-31.8); Chloride 103 mmol/L (96-109); Glucose 120 mg/dL (70-110); Potassium 3.9 mmol/L (3.5-5.5); Sodium 135 mmol/L (135-145)
[2024-09-06 08:43] LABS: Basophils # (A) 0.03 X 10*3/uL (0.00-0.10); Basophils % (A) 0.3 %; Eosinophils # (A) 0.04 X 10*3/uL (0.04-0.35); Eosinophils % (A) 0.4 %; HCT 31.7 % (39.6-50.0); HGB 11.3 g/dL (13.0-17.0); Lymphocytes # (A) 0.57 X 10*3/uL (0.90-5.00); Lymphocytes % (A) 5.6 %; MCH 32.9 pg (27.0-32.0); MCHC 35.6 g/dL (32.0-37.0); MCV 92.4 FL (80.0-97.0); Mean Platelet Volume 9.9 FL (9.5-12.2); Monocytes % (A) 14.8 %; NRBC Per 100 WBC 0 X 10*3/uL (0.00-0.01); Neutrophils % (A) 78.2 %; Platelet Count 203 X 10*3/uL (140-440); RBC 3.43 X 10*6/uL (4.40-5.60); RDW 13.4 % (11.5-14.5); WBC 10.11 X 10*3/uL (4.50-10.00)
--- NOTE | 2024-09-06 11:14 | P.DS ---
Providers Date of admission: 09/01/24 14:34 Attending physician: Andreas Garibay MD Consults: 09/02/24 13:02 Consult Physician Routine Consulting Provider: Elmira Foley Consult Reason/Comments: Enterococcus bacteremia Do you want consulting provider notified?: Yes Primary care physician: Papo Acharya MD Hospital Course: Discharge Diagnosis: Sepsis secondary to Enterococcus UTI and bacteremia DANDRE likely prerenal secondary to dehydration Metabolic acidosis secondary to above Hypovolemic hyponatremia, improved, Rhabdomyolysis Type II DM not on insulin Dyslipidemia Hospital Course: 73 year old M with PMH HTN, HLD, DM presents to the ED for generalized weakness and fever. Patient is a poor historian and history is obtained from charting. Patient reports inability to control his bladder. Apparently he had a Tmax of 103F at home which prompted this admission. He currently denies any headache, LE edema, N/V, cough, chest pain, shortness of breath, palpitations, changes in bowel habits. No changes in appetite or weight. No dizziness, numbness/weakness/tinging of the extremities. In the ED he underwent extensive evaluation. BP 99/61, HR 92, RR 18, T 98.2F, 96% on RA. CBC, Coag panel, CMP significant for WBC 18.9, RBC 4.08, Hct 38.3, PT 13, INR 1.2, Na 126, Cl 94, bicarb 21, BUN 22, Cr 1.27, glu 124, T. Bili 1.4, alk phos 26. Lactic acid 1.0. CPK 1415. UA large LE. COVID, RSV, Flu neg. CXR/Shoulder XR showed no acute process. Patient is started on Rocephin for UTI sepsis and admitted for further workup and management. BCx growing Enterococcus faecalis, Rocephin switched to Ampicillin and ID consulted. Urine and blood cultures growing Enterococcus faecalis. 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 His RN brought up concern of his continued issues with imbalance. Neurological exam was performed on 09/04, showed 5 out of 5 muscle strength in all extremities, normal finger-nose and Romberg, no nystagmus. 09/06: Feeling well, no active complaints, repeat blood cultures continue to be negative, discussed with ID, patient is stable for discharge, ID prescribed 10 more days supply for amoxicillin, patient will follow-up with primary care physician and ID Losartan was discontinued to discharge, patient was provided with Procardia and recommended to monitor blood pressure closely, follow-up with PCP Patient seen and examined at bedside Vital signs reviewed and stable. General: [nontoxic], [no distress], [appears at stated age] Derm: [warm], [dry] Head: [atraumatic], [normocephalic], [symmetric] Eyes: [EOMI], [no lid lag], [anicteric sclera] Mouth: [no lip lesion], [mucus membranes moist] Cardiovascular: [S1S2 reg], [no murmur] Lungs: [CTA bilateral], [no rhonchi, no rales] , [no accessory muscle use] Abdominal: [soft], [ nontender to palpation], [no guarding], [no appreciable organomegaly] Ext: [no gross muscle atrophy], [no edema], [no contractures] Neuro: [ CN II-XI grossly intact], [no focal neuro deficits] Psych: [Alert], [oriented], [appropriate affect] A total of 41minutes of time were spent preparing this complex discharge summary. Patient was discharged on 09/06/2024. Patient Condition at Discharge: Serious Plan - Discharge Summary Discharge Rx Participant: No New Discharge Prescriptions: New NIFEdipine XL [Procardia Xl] 30 mg PO DAILY #30 tab Amoxicillin 500 mg PO Q8H #30 capsule Continue metFORMIN HCL [Glucophage] 500 mg PO BID Atorvastatin [Lipitor] 20 mg PO HS Discontinued Losartan Potassium [Cozaar] 100 mg PO HS Discharge Medication List Atorvastatin [Lipitor] 20 mg PO HS 09/01/24 [History] metFORMIN HCL [Glucophage] 500 mg PO BID 09/01/24 [History] Amoxicillin 500 mg PO Q8H #30 capsule 09/06/24 [Rx] NIFEdipine XL [Procardia Xl] 30 mg PO DAILY #30 tab 09/06/24 [Rx] Follow up Appointment(s)/Referral(s): Papo Acharya MD [Primary Care Provider] - 1-2 days Elmira Foley MD [STAFF PHYSICIAN] - 1 Week Patient Instructions/Handouts: Urinary Tract Infection in Men (DC), Nifedipine (By mouth) Activity/Diet/Wound Care/Special Instructions: Please, follow-up with your primary care physician, infectious disease specialist. Note that your losartan was discontinued due to abnormal kidney function, please start on nifedipine 30 mg daily, monitor your blood pressure every day and keep a log of the readings to discuss with your primary care physician. Discharge Disposition: HOME SELF-CARE
--- NOTE | 2024-09-06 12:59 | P.PN ---
Subjective Progress Note Date: 09/06/24 Principal diagnosis: Reason for follow-up is UTI and bacteremia Patient is a 73-year-old male with a past medical history significant for hypertension osteoarthritis former smoker presenting to the hospital for evaluation of weakness and fever patient did have positive blood culture Enterococcus faecalis prompting this consultation. On today's evaluation that is 09/06/2024,the patient denies any fever or any chills, patient is breathing comfortably on room air, the patient denies chest pain shortness of breath and did have improvement in cough, patient denies a bdominal pain, no nausea vomiting or diarrhea. Patient white count is 10.11, creatinine is 1.6 blood culture repeat has been negative Objective - Vital Signs Vital signs: Vital Signs Temp 98.4 F 09/06/24 07:15 Pulse 88 09/06/24 07:15 Resp 18 09/06/24 07:15 BP 138/74 09/06/24 07:15 Pulse Ox 94 L 09/06/24 07:15 FiO2 Intake & Output 09/05/24 09/06/24 09/06/24 18:59 06:59 18:59 Intake Total 400 Output Total 1700 1100 Balance -1300 -1100 Intake: Oral 400 Output: Urine 1700 1100 Other: Voiding Method Toilet Toilet Urinal Urinal Diaper Diaper - Exam GENERAL DESCRIPTION: An elderly male lying in bed in no distress RESPIRATORY SYSTEM: Unlabored breathing , decreased breath sounds at bases HEART: S1 S2 regular rate and rhythm , ABDOMEN: Soft , no tenderness EXTREMITIES: No edema feet - Labs CBC & Chem 7: 09/06/24 03:47 09/06/24 03:47 Labs: Abnormal Lab Results - Last 24 Hours (Table) 09/05/24 09/05/24 09/05/24 Range/Units 11:29 16:48 20:45 WBC (4.50-10.00) X 10*3/uL RBC (4.40-5.60) X 10*6/uL Hgb (13.0-17.0) g/dL Hct (39.6-50.0) % MCH (27.0-32.0) pg Immature Gran # (0.00-0.04) X 10*3/uL Neutrophils # (1.80-7.70) X 10*3/uL Lymphocytes # (0.90-5.00) X 10*3/uL Monocytes # (0.20-1.00) X 10*3/uL Creatinine (0.6-1.5) mg/dL Est GFR (CKD-EPI) (>=60) Glucose (70-110) mg/dL POC Glucose (mg/dL) 152 H 112 H 114 H (70-110) mg/dL Calcium (8.7-10.3) mg/dL 09/06/24 09/06/24 Range/Units 03:47 03:47 WBC 10.11 H (4.50-10.00) X 10*3/uL RBC 3.43 L (4.40-5.60) X 10*6/uL Hgb 11.3 L (13.0-17.0) g/dL Hct 31.7 L (39.6-50.0) % MCH 32.9 H (27.0-32.0) pg Immature Gran # 0.07 H (0.00-0.04) X 10*3/uL Neutrophils # 7.90 H (1.80-7.70) X 10*3/uL Lymphocytes # 0.57 L (0.90-5.00) X 10*3/uL Monocytes # 1.50 H (0.20-1.00) X 10*3/uL Creatinine 1.6 H (0.6-1.5) mg/dL Est GFR (CKD-EPI) 46 L (>=60) Glucose 120 H (70-110) mg/dL POC Glucose (mg/dL) (70-110) mg/dL Calcium 8.4 L (8.7-10.3) mg/dL Microbiology - Last 24 Hours (Table) 09/03/24 14:41 Blood Culture - Preliminary Blood Assessment and Plan (1) Sepsis Status: Acute Code(s): A41.9 - SEPSIS, UNSPECIFIED ORGANISM SNOMED Code(s): 89386447 (2) Bacteremia due to Enterococcus Status: Acute Code(s): R78.81 - BACTEREMIA; B95.2 - ENTEROCOCCUS THE CAUSE OF DISEASES CLASSIFIED ELSEWHERE SNOMED Code(s): 5255908570 (3) Leukocytosis Status: Acute Code(s): D72.829 - ELEVATED WHITE BLOOD CELL COUNT, UNSPECIFIED SNOMED Code(s): 996583357 (4) Urinary tract infection Status: Acute Code(s): N39.0 - URINARY TRACT INFECTION, SITE NOT SPECIFIED SNOMED Code(s): 49584156 Plan: 1patient presented hospital with sepsis in this patient who did have fever tachycardia mild hypotension elevated white count meeting criteria for SIRS/sepsis source is likely urinary in this patient who did have a urinary symptoms significantly positive UA. 2Enterococcus faecalis bacteremia source likely urinary. 3blood cultures has been repeated document clearance of his bacteremia which currently pending. 4ultrasound of the kidney bladder area suggestive horseshoe kidney but no hydronephrosis on right side 5patient white count has almost normalized blood culture repeat has been negative we will suggest a 10-day course of oral amoxicillin on discharge prescription sent to the pharmacy and close outpatient follow-up Dictation was produced using [employer] dictation software. please excuse any grammatical, word or spelling errors. Time with Patient: Less than 30
== END 2024-09-06 11:59 | disposition home or self-care (01) | DRG 872 ==
LOC: EC 11:46 → 4SSUR 14:34
PROVIDERS: ADMIT Family Medicine; ATTEND Family Medicine
DX: A41.81 Sepsis due to Enterococcus (principal); E87.20 Acidosis, unspecified; M62.82 Rhabdomyolysis; R17 Unspecified jaundice; E11.9 Type 2 diabetes mellitus without complications; I10 Essential (primary) hypertension; N17.9 Acute kidney failure, unspecified; N39.0 Urinary tract infection, site not specified; E87.1 Hypo-osmolality and hyponatremia; E78.5 Hyperlipidemia, unspecified; E86.0 Dehydration; E86.1 Hypovolemia; Z79.84 Long term (current) use of oral hypoglycemic drugs; Z79.899 Other long term (current) drug therapy; Z91.81 History of falling; Z87.891 Personal history of nicotine dependence; Z91.013 Allergy to seafood; Z98.41 Cataract extraction status, right eye
CPT/HCPCS: 36415; 71046; 76770; 80048; 80053; 81001; 82550; 83036; 83605; 85025; 85027; 85610; 85730; 87040; 87077; 87086; 87186; 87636; 96360; 96361; 99285

== ENCOUNTER → 2024-11-21 | Outpatient (CLI) | payer MEDICARE ==
--- NOTE | 2024-11-21 11:45 | US ---
EXAMINATION TYPE: US kidneys/renal and bladder DATE OF EXAM: 11/21/2024 COMPARISON: Renal ultrasound 09/03/2024, CT lumbar spine 05/15/2021 CLINICAL INDICATION: Male, 74 years old with history of R10.9 UNSPECIFIED ABDOMINAL PAIN; Left side p ain x1 year TECHNIQUE: Grayscale imaging of the bilateral kidneys and urinary bladder: FINDINGS: EXAM MEASUREMENTS: Right Kidney: 9.0 x 4.3 x 5.2 cm Left Kidney: Not visualized Right Kidney: No hydronephrosis or masses seen Left Kidney: Not visualized on this exam, possibly due to horseshoe kidney morphology. Bladder: wnl Bilateral Jets seen: Yes There is no evidence for hydronephrosis at this point in time. No nephrolithiasis is seen. No brian s are identified. The urinary bladder is anechoic. Bilateral ureteral jets identified. IMPRESSION: Horseshoe type kidney redemonstrated with suboptimal visualization of the left kidney. No right-sided hydronephrosis. [facility], , 11/21/2024 11:42 AM
== END | disposition home or self-care (01) ==
LOC: RADUSWWP 10:24
PROVIDERS: ATTEND Family Medicine
DX: R10.9 Unspecified abdominal pain (principal); Q63.1 Lobulated, fused and horseshoe kidney
CPT/HCPCS: 76770

== ENCOUNTER → 2024-11-24 | Outpatient (CLI) | payer MEDICARE ==
[2024-11-24 15:20] LABS: Appearance,Urine Clear (Clear); Bilirubin,Urine Negative (Negative); Blood,Urine Negative (Negative); Color,Urine Yellow (Yellow); Ketones,Urine Negative (Negative); Nitrite,Urine Negative (Negative); PH, Urine 7.5; Specific Gravity,Urine 1.008 (1.001-1.030); Urobilinogen,Urine 0.2 E.U./DL
[2024-11-24 15:29] LABS: Bacteria,Urine None Seen (None Seen)
== END | disposition home or self-care (01) ==
LOC: LABWHC1 08:24
DX: Z12.5 Encounter for screening for malignant neoplasm of prostate (principal); R10.9 Unspecified abdominal pain; N40.0 Benign prostatic hyperplasia without lower urinary tract symptoms
CPT/HCPCS: 81001; 36415; G0103